=== PATIENT | female | born 1960 | race Caucasian/White ===

== ENCOUNTER 2020-11-04 17:00 | Inpatient (IN) | payer BC, MEDICARE ==
--- NOTE | 2020-11-04 17:17 | ED ---
SOB HPI - General Chief Complaint: Shortness of Breath Stated Complaint: ARLYN Time Seen by Provider: 11/04/20 17:05 Source: EMS Mode of arrival: EMS Limitations: no limitations - History of Present Illness Initial Comments: Patient is a 60-year-old female with past medical history of hypertension, DVT, factor V 5 who presents to the emergency room with reported shortness of breath, hypoxia, fevers and myalgias. Patient reports that she has been sick for over one week. Reports to diffuse myalgias, nausea and diarrhea. She also complains of shortness of breath without productive cough. Denies sick contacts with similar symptoms. Denies history of previous underlying lung or cardiac conditions. Patient denies any chest pain. No abdominal pain. She has been taking Motrin around the clock for her fevers and body aches. Last dose was around 1 PM. Patient reports to worsening shortness of breath and therefore called EMS. Upon arrival to her house she was found to be saturating 80%. She denies a history of COPD. No inhaler use. Does have a history of DVT and factor V. Currently not on any anticoagulation. Denies any calf pain or s welling. No other alleviating, precipitating or modifying factors - Related Data Home Medications Medication Instructions Recorded Confirmed Ascorbic Acid [Vitamin C] 500 mg PO DAILY 11/04/20 11/04/20 Aspirin EC [Ecotrin Low Dose] 81 mg PO DAILY 11/04/20 11/04/20 Cyclobenzaprine [Flexeril] 10 mg PO TID PRN 11/04/20 11/04/20 Ibuprofen [Motrin Ib] 600 mg PO Q8H PRN 11/04/20 11/04/20 Losartan Potassium 100 mg PO DAILY 11/04/20 11/04/20 Multivitamins, Thera [Multivitamin 1 tab PO DAILY 11/04/20 11/04/20 (formulary)] Vitamin E 400 unit PO DAILY 11/04/20 11/04/20 Zinc 50 mg PO DAILY 11/04/20 11/04/20 clonazePAM [KlonoPIN] 0.5 mg PO BID 11/04/20 11/04/20 oxyCODONE HCL [oxyCODONE HCL (IR)] 15 mg PO QID 11/04/20 11/04/20 Allergies Allergy/AdvReac Type Severity Reaction Status Date / Time azithromycin Allergy Itching Verified 11/04/20 21:17 chlorpromazine Allergy Anaphylaxis Verified 11/04/20 19:41 [From Thorazine] ciprofloxacin [From Cipro] Allergy Rash/Hives Verified 11/04/20 19:41 codeine Allergy Anaphylaxis Verified 11/04/20 19:41 gabapentin Allergy Unknown Verified 11/04/20 19:41 Gadolinium-Containing Allergy Anaphylaxis Verified 11/04/20 19:41 Contrast Medi Iodinated Contrast Media Allergy Anaphylaxis Verified 11/04/20 19:41 steroids AdvReac Confusion Uncoded 11/04/20 21:17 Review of Systems ROS Statement: Those systems with pertinent positive or pertinent negative responses have been documented in the HPI. ROS Other: All systems not noted in ROS Statement are negative. Past Medical History Past Medical History: Fibromyalgia, Hypertension, Pneumonia Additional Past Medical History / Comment(s): bronchitis. History of Any Multi-Drug Resistant Organisms: None Reported Past Surgical History: Adenoidectomy, Appendectomy, Cholecystectomy, Hysterectomy, Tonsillectomy Additional Past Surgical History / Comment(s): L5/s1 fusion. lower back sti mulator. wisdom teeth. Past Psychological History: No Psychological Hx Reported Smoking Status: Current every day smoker Past Alcohol Use History: None Reported Past Drug Use History: None Reported - Past Family History Mother History Unknown: Yes Family Medical History: Dementia, Deep Vein Thrombosis (DVT) Sister(s) Family Medical History: Deep Vein Thrombosis (DVT) Father Family Medical History: CVA/TIA Additional Family Medical History / Comment(s): Lung Ca Brother(s) History Unknown: Yes Family Medical History: Pulmonary Embolus General Exam Limitations: no limitations General appearance: alert, in no apparent distress Head exam: Present: atraumatic, normocephalic, normal inspection Eye exam: Present: normal appearance, PERRL, EOMI. Absent: scleral icterus, conjunctival injection, periorbital swelling ENT exam: Present: normal exam, mucous membranes moist Neck exam: Present: normal inspection. Absent: tenderness, meningismus, lymphadenopathy Respiratory exam: Present: decreased breath sounds. Absent: respiratory distress, wheezes, rales, rhonchi, stridor Cardiovascular Exam: Present: normal rhythm, tachycardia, normal heart sounds. Absent: systolic murmur, diastolic murmur, rubs, gallop, clicks GI/Abdominal exam: Present: soft, normal bowel sounds. Absent: distended, tenderness, guarding, rebound, rigid Extremities exam: Present: normal inspection, full ROM, normal capillary refill. Absent: tenderness, pedal edema, joint swelling, calf tenderness Back exam: Present: normal inspection Neurological exam: Present: alert, oriented X3, CN II-XII intact Psychiatric exam: Present: normal affect, normal mood Skin exam: Present: warm, dry, intact, normal color. Absent: rash Course Vital Signs 11/04/20 11/04/20 17:03 20:09 Temperature 98.4 F 98.2 F Pulse Rate 111 H 69 Respiratory 18 18 Rate Blood Pressure 139/109 132/84 O2 Sat by Pulse 99 94 L Oximetry Medical Decision Making - Medical Decision Making Upon arrival patient is placed into room 8. A thorough history and physical exam was performed. Patient is taken off of supplemental oxygen and is satu rating 90% for us. IV is established. Laboratory studies were conducted. Patient is swabbed for Covid. Because of her history of DVT in fact or [address] of her chest was performed. Laboratory studies are reviewed. CT of the chest was performed which demonstrates possible linear lucency is through posterior rib 8. Anterior seventh rib shows 1 cm zone of callus formation. Patient denies any recent falls. Albuterol inhaler, azithromycin and Rocephin were ordered. I will send a Covid PCR as I have concerns that the patient does clinically have Covid. Due to her new onset hypoxia I did recommend hospital admission. Spoke with Dr. nur who agreed to admit the patient. I will place Dr. Monsalve on consult. Patient remained in stable condition awaiting transport to the floor - Lab Data Result diagrams: 11/05/20 05:36 11/05/20 05:36 Lab Results 11/04/20 11/04/20 11/04/20 Range/Units 17:34 17:34 17:34 WBC 6.7 (3.8-10.6) k/uL RBC 4.53 (3.80-5.40) m/uL Hgb 14.8 (11.4-16.0) gm/dL Hct 43.4 (34.0-46.0) % MCV 95.8 (80.0-100.0) fL MCH 32.7 (25.0-35.0) pg MCHC 34.1 (31.0-37.0) g/dL RDW 12.4 (11.5-15.5) % Plt Count 315 (150-450) k/uL MPV 6.8 Neutrophils % 57 % Lymphocytes % 33 % Monocytes % 6 % Eosinophils % 2 % Basophils % 1 % Neutrophils # 3.8 (1.3-7.7) k/uL Lymphocytes # 2.2 (1.0-4.8) k/uL Monocytes # 0.4 (0-1.0) k/uL Eosinophils # 0.2 (0-0.7) k/uL Basophils # 0.0 (0-0.2) k/uL PT 9.5 (9.0-12.0) sec INR 0.9 (<1.2) APTT 22.5 (22.0-30.0) sec D-Dimer 0.46 (<0.60) mg/L FEU Sodium 136 L (137-145) mmol/L Potassium 3.8 (3.5-5.1) mmol/L Chloride 101 (98-107) mmol/L Carbon Dioxide 29 (22-30) mmol/L Anion Gap 6 mmol/L BUN 10 (7-17) mg/dL Creatinine 0.73 (0.52-1.04) mg/dL Est GFR (CKD-EPI)AfAm >90 (>60 ml/min/1.73 sqM) Est GFR (CKD-EPI)NonAf >90 (>60 ml/min/1.73 sqM) Glucose 96 (74-99) mg/dL Plasma Lactic Acid Kaz (0.7-2.0) mmol/L Calcium 9.0 (8.4-10.2) mg/dL Total Bilirubin 0.4 (0.2-1.3) mg/dL AST 23 (14-36) U/L ALT 24 (4-34) U/L Alkaline Phosphatase 94 (38-126) U/L Troponin I (0.000-0.034) ng/mL NT-Pro-B Natriuret Pep pg/mL Total Protein 6.8 (6.3-8.2) g/dL Albumin 4.2 (3.5-5.0) g/dL Coronavirus (PCR) (Not Detectd) 11/04/20 11/04/20 11/04/20 Range/Units 17:34 17:34 17:34 WBC (3.8-10.6) k/uL RBC (3.80-5.40) m/uL Hgb (11.4-16.0) gm/dL Hct (34.0-46.0) % MCV (80.0-100.0) fL MCH (25.0-35.0) pg MCHC (31.0-37.0) g/dL RDW (11.5-15.5) % Plt Count (150-450) k/uL MPV Neutrophils % % Lymphocytes % % Monocytes % % Eosinophils % % Basophils % % Neutrophils # (1.3-7.7) k/uL Lymphocytes # (1.0-4.8) k/uL Monocytes # (0-1.0) k/uL Eosinophils # (0-0.7) k/uL Basophils # (0-0.2) k/uL PT (9.0-12.0) sec INR (<1.2) APTT (22.0-30.0) sec D-Dimer (<0.60) mg/L FEU Sodium (137-145) mmol/L Potassium (3.5-5.1) mmol/L Chloride (98-107) mmol/L Carbon Dioxide (22-30) mmol/L Anion Gap mmol/L BUN (7-17) mg/dL Creatinine (0.52-1.04) mg/dL Est GFR (CKD-EPI)AfAm (>60 ml/min/1.73 sqM) Est GFR (CKD-EPI)NonAf (>60 ml/min/1.73 sqM) Glucose (74-99) mg/dL Plasma Lactic Acid Kaz 0.9 (0.7-2.0) mmol/L Calcium (8.4-10.2) mg/dL Total Bilirubin (0.2-1.3) mg/dL AST (14-36) U/L ALT (4-34) U/L Alkaline Phosphatase (38-126) U/L Troponin I <0.012 (0.000-0.034) ng/mL NT-Pro-B Natriuret Pep 443 pg/mL Total Protein (6.3-8.2) g/dL Albumin (3.5-5.0) g/dL Coronavirus (PCR) (Not Detectd) 11/04/20 Range/Units 17:34 WBC (3.8-10.6) k/uL RBC (3.80-5.40) m/uL Hgb (11.4-16.0) gm/dL Hct (34.0-46.0) % MCV (80.0-100.0) fL MCH (25.0-35.0) pg MCHC (31.0-37.0) g/dL RDW (11.5-15.5) % Plt Count (150-450) k/uL MPV Neutrophils % % Lymphocytes % % Monocytes % % Eosinophils % % Basophils % % Neutrophils # (1.3-7.7) k/uL Lymphocytes # (1.0-4.8) k/uL Monocytes # (0-1.0) k/uL Eosinophils # (0-0.7) k/uL Basophils # (0-0.2) k/uL PT (9.0-12.0) sec INR (<1.2) APTT (22.0-30.0) sec D-Dimer (<0.60) mg/L FEU Sodium (137-145) mmol/L Potassium (3.5-5.1) mmol/L Chloride (98-107) mmol/L Carbon Dioxide (22-30) mmol/L Anion Gap mmol/L BUN (7-17) mg/dL Creatinine (0.52-1.04) mg/dL Est GFR (CKD-EPI)AfAm (>60 ml/min/1.73 sqM) Est GFR (CKD-EPI)NonAf (>60 ml/min/1.73 sqM) Glucose (74-99) mg/dL Plasma Lactic Acid Kaz (0.7-2.0) mmol/L Calcium (8.4-10.2) mg/dL Total Bilirubin (0.2-1.3) mg/dL AST (14-36) U/L ALT (4-34) U/L Alkaline Phosphatase (38-126) U/L Troponin I (0.000-0.034) ng/mL NT-Pro-B Natriuret Pep pg/mL Total Protein (6.3-8.2) g/dL Albumin (3.5-5.0) g/dL Coronavirus (PCR) Not Detected (Not Detectd) - EKG Data EKG Comments: EKG demonstrates sinus rhythm with a ventricular rate of 96. CT interval 134. QRS 88. QTC of 464. No acute ST segment elevations or depressions. PVC present Disposition Clinical Impression: Hypoxia, Tachycardia, Myalgia, Pyrexia Disposition: ADMITTED IP TO THIS HOSP Condition: Stable Is patient prescribed a controlled substance at d/c from ED?: No Decision to Admit Reason: Admit from EC Decision Date: 11/04/20 Decision Time: 19:09
[2020-11-04] MEDS ORDERED: FAMOTIDINE 20 MG/2 ML VIAL IV STA (17:42)
[2020-11-04] MEDS ORDERED: diphenhydrAMINE 50 MG/ML 1 ML VIAL IVP STA (17:42)
[2020-11-04 17:50] LABS: Basophils % (A) 1 %; Eosinophils # (A) 0.2 k/uL (0-0.7); Eosinophils % (A) 2 %; HCT 43.4 % (34.0-46.0); HGB 14.8 gm/dL (11.4-16.0); Lymphocytes # (A) 2.2 k/uL (1.0-4.8); Lymphocytes % (A) 33 %; MCH 32.7 pg (25.0-35.0); MCHC 34.1 g/dL (31.0-37.0); MCV 95.8 fL (80.0-100.0); Mean Platelet Volume 6.8; Monocytes # (A) 0.4 k/uL (0-1.0); Monocytes % (A) 6 %; Neutrophils # (A) 3.8 k/uL (1.3-7.7); Neutrophils % (A) 57 %; Platelet Count 315 k/uL (150-450); RBC 4.53 m/uL (3.80-5.40); RDW 12.4 % (11.5-15.5); WBC 6.7 k/uL (3.8-10.6)
[2020-11-04 18:01] LABS: ALT 24 U/L (4-34); AST 23 U/L (14-36); African American GFR (CKD) >90 (>60 ml/min/1.73 sqM); Albumin 4.2 g/dL (3.5-5.0); Alkaline Phosphatase 94 U/L (38-126); Anion Gap 6 mmol/L; Blood Urea Nitrogen 10 mg/dL (7-17); Carbon Dioxide 29 mmol/L (22-30); Chloride 101 mmol/L (98-107); Glucose 96 mg/dL (74-99); Non-African American GFR(CKD) >90 (>60 ml/min/1.73 sqM); Potassium 3.8 mmol/L (3.5-5.1); Sodium 136 mmol/L (137-145); Total Bilirubin 0.4 mg/dL (0.2-1.3); Total Protein 6.8 g/dL (6.3-8.2)
[2020-11-04 18:06] LABS: INR 0.9 (<1.2); Partial Thromboplastin Time 22.5 sec (22.0-30.0); Prothrombin Time 9.5 sec (9.0-12.0)
--- NOTE | 2020-11-04 18:38 | CT ---
EXAMINATION TYPE: CT chest angio for PE with contrast and with 3-D reconstruction renderings DATE OF EXAM: 11/04/2020 COMPARISON: None HISTORY: History of DVT. Factor 5, shortness of breath, tachycardia and hypoxia. CT DLP: 352.5 mGycm Automated exposure control for dose reduction was used. CONTRAST: CT Chest for pulmonary embolism performed with with IV Contrast, patient injected with 100 mL of Isovue 370. FINDINGS: Airways: Unremarkable Lungs: Clear and well expanded bilaterally. However, a 1 cm ossification is noted in the right lower lobe, immediately cephalad to the right hemidiaphragm, consistent with healed granuloma. Pleural spaces: No abnormal gas or fluid collections. Mediastinum:There is satisfactory enhancement of the pulmonary artery and its branches, with no no CT evidence for pulmonary embolism. The aorta is unremarkable. No cardiomegaly or pericardial effusion. There are no greater than 1 cm hilar or mediastinal lymph nodes. Other: No additional significant abnormality is seen. IMPRESSION: No acute process.
[2020-11-04] MEDS ORDERED: AZITHROMYCIN 500 MG in SODIUM CHLORIDE 0.9% 250 ML IVPB STA (18:49)
[2020-11-04] MEDS ORDERED: cefTRIAXone IN SWFI 1,000 MG/10 ML SYRINGE IVP STA (18:49)
[2020-11-04] MEDS ORDERED: DEXAMETHASONE SOD PHOSPHATE 10 MG/ML 1 ML VIAL IV STA (19:04)
[2020-11-04] MEDS ORDERED: ALBUTEROL HFA INHALER INHALATION STA (19:04)
[2020-11-04] MEDS ORDERED: ACETAMINOPHEN TAB 325 MG TAB PO PRN (19:09)
[2020-11-04] MEDS ORDERED: NALOXONE 0.4 MG/ML 1 ML VIAL IV PRN (19:09)
[2020-11-04] MEDS ORDERED: CYCLOBENZAPRINE 10 MG TAB PO PRN (20:01)
[2020-11-04] MEDS: SODIUM CHLORIDE 0.9% 1,000 ML IV SCH (20:03)
[2020-11-04 20:07] LABS: Appearance,Urine Clear (Clear); Bilirubin,Urine Negative (Negative); Blood,Urine Negative (Negative); Color,Urine Colorless; Glucose,Urine (UA) Negative (Negative); Ketones,Urine Negative (Negative); Leukocyte Esterase,Urine Negative (Negative); Nitrite,Urine Negative (Negative); PH, Urine 6.5 (5.0-8.0); Protein,Urine Negative (Negative); Specific Gravity,Urine 1.025 (1.001-1.035); Urobilinogen,Urine <2.0 mg/dL (<2.0)
[2020-11-04] MEDS: clonazePAM 0.5 MG TAB PO SCH (22:24)
[2020-11-05] MEDS: IBUPROFEN 400 MG TAB PO PRN ×3 (04:23→19:22)
[2020-11-05] MEDS: SODIUM CHLORIDE 0.9% 1,000 ML IV SCH ×2 (04:23→17:16)
[2020-11-05 07:12] LABS: African American GFR (CKD) >90 (>60 ml/min/1.73 sqM); Anion Gap 4 mmol/L; Blood Urea Nitrogen 9 mg/dL (7-17); Calcium 8.5 mg/dL (8.4-10.2); Carbon Dioxide 29 mmol/L (22-30); Chloride 107 mmol/L (98-107); Glucose 79 mg/dL (74-99); Non-African American GFR(CKD) >90 (>60 ml/min/1.73 sqM); Potassium 3.8 mmol/L (3.5-5.1); Sodium 140 mmol/L (137-145)
[2020-11-05] MEDS: ASCORBIC ACID 500 MG TAB PO SCH (08:44)
[2020-11-05] MEDS: ZINC SULFATE 220 MG CAP PO SCH (08:44)
[2020-11-05] MEDS: LOSARTAN 50 MG TAB PO SCH (08:44)
[2020-11-05] MEDS: ASPIRIN 81 MG PO SCH (08:44)
[2020-11-05] MEDS: VITAMIN E (DL,TOCOPHERYL ACET) 400 UNIT (180 MG) CAP PO SCH (08:48)
[2020-11-05] MEDS: clonazePAM 0.5 MG TAB PO SCH ×2 (08:50→21:35)
[2020-11-05 08:53] LABS: Basophils # (A) 0.02 X 10*3/uL (0.00-0.10); Basophils % (A) 0.4 %; Eosinophils # (A) 0.11 X 10*3/uL (0.04-0.35); Eosinophils % (A) 2.2 %; HCT 39.5 % (37.2-46.3); HGB 13.3 g/dL (12.0-15.0); Lymphocytes # (A) 1.98 X 10*3/uL (0.90-5.00); Lymphocytes % (A) 39.5 %; MCH 32.7 pg (27.0-32.0); MCHC 33.7 g/dL (32.0-37.0); MCV 97.1 fL (80.0-97.0); Mean Platelet Volume 9.6 fL (9.5-12.2); Monocytes # (A) 0.45 X 10*3/uL (0.20-1.00); Neutrophils # (A) 2.44 X 10*3/uL (1.80-7.70); Neutrophils % (A) 48.7 %; Platelet Count 254 X 10*3/uL (140-440); RBC 4.07 X 10*6/uL (4.10-5.20); RDW 11.9 % (11.5-14.5); WBC 5.01 X 10*3/uL (4.50-10.00)
--- NOTE | 2020-11-05 11:20 | P.CNPUL ---
History of Present Illness Consult date: 11/05/20 Requesting physician: Marcelino Navarro Reason for consult: dyspnea Chief complaint: Shortness of breath, cough, congestion History of present illness: This a very pleasant 60-year-old female patient with a known history of fibromyalgia, chronic back pain with pain stimulator, factor V, DVT, hypert ension, multiple ALLERGIES. She presented here to the emergency room yesterday after a 8 day history of increased shortness of breath, dry nonproductive cough. Fever. Body aches. Nausea, diarrhea. CoVID 19 screen was negative. She denied any exposures. She lives at home with her adopted grandson. She does have chronic and ongoing tobacco dependence. She does have a rescue inhaler but no maintenance inhalers. He states she gets bronchitis typically this time of year. CT angiogram ruled out pulmonary embolism. Lung french were clear. No evidence of CoVID pneumonitis. White count 5.0. Hemoglobin 13.3. Sodium 140. Potassium 3.8. D-dimer 0.46. Creatinine 0.58. She is seen today in consultation on the regular medical floor. She is awake and alert in no acute distress. She is dyspneic with minimal exertion. She does have some end expiratory wheeze, dry nonproductive cough. She is currently afebrile. Maintaining O2 saturations in high 90s on room air. Review of Systems REVIEW OF SYSTEMS: CONSTITUTIONAL: Generalized weakness, body aches. Denies any recent significant weight loss or weight gain. EYES: Denies change in vision. EARS, NOSE, MOUTH, THROAT: Denies headaches, denies sore throat. CARDIOVASCULAR: Denies chest pain, palpitations or syncopal episodes. RESPIRATORY: Positive for shortness of breath, cough, congestion no hemoptysis. GASTROINTESTINAL: Denies change in appetite, denies abdominal pain GENITOURINARY: Denies hematuria, denies infections. MUSKULOSKELETAL: Denies pain, denies swelling. INTEGUMENTARY: Denies rash, denies eczema. NEUROLOGICAL: Denies recent memory loss, no recent seizure activity. PSYCHIATRIC: Denies anxiety, denies depression. HEMATOLOGIC/LYMPHATIC: Denies anemia, denies enlarged lymph nodes. Past Medical History Past Medical History: Fibromyalgia, Hypertension, Pneumonia Additional Past Medical History / Comment(s): bronchitis. History of Any Multi-Drug Resistant Organisms: None Reported Past Surgical History: Adenoidectomy, Appendectomy, Cholecystectomy, Hysterectomy, Tonsillectomy Additional Past Surgical History / Comment(s): L5/s1 fusion. lower back stimulator. wisdom teeth. Past Anesthesia/Blood Transfusion Reactions: No Reported Reaction Past Psychological History: No Psychological Hx Reported Smoking Status: Current every day smoker Past Alcohol Use History: None Reported Past Drug Use History: None Reported - Past Family History Mother History Unknown: Yes Family Medical History: Dementia, Deep Vein Thrombosis (DVT) Sister(s) Family Medical History: Deep Vein Thrombosis (DVT) Father Family Medical History: CVA/TIA Additional Family Medical History / Comment(s): Lung Ca Brother(s) History Unknown: Yes Family Medical History: Pulmonary Embolus Medications and Allergies Home Medications Medication Instructions Recorded Confirmed Type Ascorbic Acid [Vitamin C] 500 mg PO DAILY 11/04/20 11/04/20 History Aspirin EC [Ecotrin Low Dose] 81 mg PO DAILY 11/04/20 11/04/20 History Cyclobenzaprine [Flexeril] 10 mg PO TID PRN 11/04/20 11/04/20 History Ibuprofen [Motrin Ib] 600 mg PO Q8H PRN 11/04/20 11/04/20 History Losartan Potassium 100 mg PO DAILY 11/04/20 11/04/20 History Multivitamins, Thera [Multivitamin 1 tab PO DAILY 11/04/20 11/04/20 History (formulary)] Vitamin E 400 unit PO DAILY 11/04/20 11/04/20 History Zinc 50 mg PO DAILY 11/04/20 11/04/20 History clonazePAM [KlonoPIN] 0.5 mg PO BID 11/04/20 11/04/20 History oxyCODONE HCL [oxyCODONE HCL (IR)] 15 mg PO QID 11/04/20 11/04/20 History Allergies Allergy/AdvReac Type Severity Reaction Status Date / Time azithromycin Allergy Itching Verified 11/04/20 21:17 chlorpromazine Allergy Anaphylaxis Verified 11/04/20 19:41 [From Thorazine] ciprofloxacin [From Cipro] Allergy Rash/Hives Verified 11/04/20 19:41 codeine Allergy Anaphylaxis Verified 11/04/20 19:41 gabapentin Allergy Unknown Verified 11/04/20 19:41 Gadolinium-Containing Allergy Anaphylaxis Verified 11/04/20 19:41 Contrast Medi Iodinated Contrast Media Allergy Anaphylaxis Verified 11/04/20 19:41 steroids AdvReac Confusion Uncoded 11/04/20 21:17 Physical Exam Vitals: Vital Signs Temp Pulse Pulse Resp BP BP Pulse Ox 11/05/20 10:16 20 11/05/20 07:43 97.9 F 91 20 129/84 98 11/05/20 02:00 97.5 F L 86 20 124/81 99 11/04/20 21:45 97.8 F 82 20 131/93 96 11/04/20 20:09 98.2 F 69 18 132/84 94 L 11/04/20 17:03 98.4 F 111 H 18 139/109 99 Intake and Output 11/04/20 11/05/20 11/05/20 22:59 06:59 14:59 Intake Total 100 100 200 Balance 100 100 200 Intake: Oral 100 100 200 Other: # Voids 0 Weight 74.843 kg GENERAL EXAM: Alert, pleasant 60-year-old female patient, on room air, comfortable in no apparent distress. HEAD: Normocephalic. EYES: Normal reaction of pupils, equal size. NOSE: Clear with pink turbinates. THROAT: No erythema or exudates. NECK: No masses, no JVD. CHEST: No chest wall deformity. LUNGS: Equal air entry with bilateral end expiratory wheeze, diminished. CVS: S1 and S2 normal with no audible murmur, regular rhythm. ABDOMEN: No hepatosplenomegaly, normal bowel sounds, no guarding or rigidity. SPINE: No scoliosis or deformity SKIN: No rashes CENTRAL NERVOUS SYSTEM: No focal deficits, tone is normal in all 4 extremities. EXTREMITIES: There is no peripheral edema. No clubbing, no cyanosis. Peripheral pulses are intact. Results - Laboratory Findings CBC and BMP: 11/05/20 05:36 11/05/20 05:36 PT/INR, D-dimer PT 9.5 sec (9.0-12.0) 11/04/20 17:34 INR 0.9 (<1.2) 11/04/20 17:34 D-Dimer 0.46 mg/L FEU (<0.60) 11/04/20 17:34 Abnormal lab findings: Abnormal Labs 11/04/20 11/05/20 17:34 05:36 RBC 4.07 L MCV 97.1 H MCH 32.7 H Sodium 136 L - Diagnostic Findings CT scan - chest: image reviewed Assessment and Plan Assessment: 1 weakness of breath secondary to acute purulent tracheobronchitis 2 Suspect acute exacerbation of chronic obstructive pulmonary disease 3 Chronic and ongoing tobacco dependence 4 History of fibromyalgia 6 History of chronic back pain 7 Hypertension Plan: The patient was seen and evaluated by Dr. Miramontes CAT scan of labs reviewed Trial her with Decadron Add albuterol Educated regarding the importance of complete smoking cessation Add NicoDerm patch Probable discharge in the a.m. She would benefit from a follow-up in our office where we can perform full pulmonary function testing to evaluate severity of suspected COPD We will continue to follow and make further recommendations based on her clinical status I, the cosigning physician, performed a history & physical examination of the patient. Lungs sounds with bilateral index. Maintaining good O2 saturations in the 90s on room air. I discussed the assessment and plan of care with my nurse practitioner, Nieves Dwyer. I attest to the above consultation as dictated by her. Time with Patient: Greater than 30
[2020-11-05] MEDS: ALBUTEROL HFA INHALER INHALATION SCH ×3 (11:36→20:12)
[2020-11-05] MEDS ORDERED: ALBUTEROL HFA INHALER INHALATION SCH (12:00)
[2020-11-05] MEDS ORDERED: IPRATROPIUM-ALBUTEROL 3 ML NEB INHALATION SCH (12:00)
[2020-11-05] MEDS: NICOTINE 14MG/24HR PATCH TRANSDERM SCH (12:08)
[2020-11-05] MEDS: DEXAMETHASONE SOD PHOSPHATE 4 MG/ML 1 ML VIAL IV SCH ×2 (13:06→18:03)
--- NOTE | 2020-11-05 18:08 | P.HPIM ---
History of Present Illness H&P Date: 11/05/20 Chief Complaint: Shortness of breath 60-year-old female with past medical history of hypertension, DVT, factor V 5 who presents to the emergency room with reported shortness of breath, hypoxia, fevers and myalgias. Patient reports that she has been sick for over one week. Reports to diffuse myalgias, nausea and diarrhea. She also complains of shortness of breath without productive cough. Denies sick contacts with similar symptoms. Denies history of previous underlying lung or cardiac conditions. Patient denies any chest pain. No abdominal pain. She has been taking Motrin around the clock for her fevers and body aches. Last dose was around 1 PM. Patient reports to worsening shortness of breath and therefore called EMS. Upon arrival to her house she was found to be saturating 80%. She denies a history of COPD. No inhaler use. Does have a history of DVT and factor V. Currently not on any anticoagulation. Denies any calf pain or swelling. No other a lleviating, precipitating or modifying factors CT of her chest was performed. Laboratory studies are reviewed. CT of the chest was performed which demonstrates possible linear lucency is through pos terior rib 8. Anterior seventh rib shows 1 cm zone of callus formation. Patient denies any recent falls. Albuterol inhaler, azithromycin and Rocephin were ordered. Review of Systems REVIEW OF SYSTEMS: CONSTITUTIONAL: No fever, no malaise, no fatigue. HEENT: No recent visual problems or hearing problems. Denied any sore throat. CARDIOVASCULAR: No chest pain, orthopnea, PND, no palpitations, no syncope. PULMONARY: No shortness of breath, no cough, no hemoptysis. GASTROINTESTINAL: No diarrhea, no nausea, no vomiting, no abdominal pain. NEUROLOGICAL: No headaches, no weakness, no numbness. HEMATOLOGICAL: Denies any bleeding or petechiae. GENITOURINARY: Denies any burning micturition, frequency, or urgency. MUSCULOSKELETAL/RHEUMATOLOGICAL: Denies any joint pain, swelling, or any muscle pain. ENDOCRINE: Denies any polyuria or polydipsia. The rest of the 14-point review of systems is negative. Past Medical History Past Medical History: Fibromyalgia, Hypertension, Pneumonia Additional Past Medical History / Comment(s): bronchitis. History of Any Multi-Drug Resistant Organisms: None Reported Past Surgical History: Adenoidectomy, Appendectomy, Cholecystectomy, Hysterectomy, Tonsillectomy Additional Past Surgical History / Comment(s): L5/s1 fusion. lower back stimulator. wisdom teeth. Past Anesthesia/Blood Transfusion Reactions: No Reported Reaction Past Psychological History: No Psychological Hx Reported Smoking Status: Current every day smoker Past Alcohol Use History: None Reported Past Drug Use History: None Reported - Past Family History Mother History Unknown: Yes Family Medical History: Dementia, Deep Vein Thrombosis (DVT) Sister(s) Family Medical History: Deep Vein Thrombosis (DVT) Father Family Medical History: CVA/TIA Additional Family Medical History / Comment(s): Lung Ca Brother(s) History Unknown: Yes Family Medical History: Pulmonary Embolus Medications and Allergies Home Medications Medication Instructions Recorded Confirmed Type Ascorbic Acid [Vitamin C] 500 mg PO DAILY 11/04/20 11/04/20 History Aspirin EC [Ecotrin Low Dose] 81 mg PO DAILY 11/04/20 11/04/20 History Cyclobenzaprine [Flexeril] 10 mg PO TID PRN 11/04/20 11/04/20 History Ibuprofen [Motrin Ib] 600 mg PO Q8H PRN 11/04/20 11/04/20 History Losartan Potassium 100 mg PO DAILY 11/04/20 11/04/20 History Multivitamins, Thera [Multivitamin 1 tab PO DAILY 11/04/20 11/04/20 History (formulary)] Vitamin E 400 unit PO DAILY 11/04/20 11/04/20 History Zinc 50 mg PO DAILY 11/04/20 11/04/20 History clonazePAM [KlonoPIN] 0.5 mg PO BID 11/04/20 11/04/20 History oxyCODONE HCL [oxyCODONE HCL (IR)] 15 mg PO QID 11/04/20 11/04/20 History Allergies Allergy/AdvReac Type Severity Reaction Status Date / Time azithromycin Allergy Itching Verified 11/04/20 21:17 chlorpromazine Allergy Anaphylaxis Verified 11/04/20 19:41 [From Thorazine] ciprofloxacin [From Cipro] Allergy Rash/Hives Verified 11/04/20 19:41 codeine Allergy Anaphylaxis Verified 11/04/20 19:41 gabapentin Allergy Unknown Verified 11/04/20 19:41 Gadolinium-Containing Allergy Anaphylaxis Verified 11/04/20 19:41 Contrast Medi Iodinated Contrast Media Allergy Anaphylaxis Verified 11/04/20 19:41 steroids AdvReac Confusion Uncoded 11/04/20 21:17 Physical Exam Vitals: Vital Signs Temp Pulse Pulse Resp BP BP Pulse Ox 11/05/20 10:16 20 11/05/20 07:43 97.9 F 91 20 129/84 98 11/05/20 02:00 97.5 F L 86 20 124/81 99 11/04/20 21:45 97.8 F 82 20 131/93 96 11/04/20 20:09 98.2 F 69 18 132/84 94 L 11/04/20 17:03 98.4 F 111 H 18 139/109 99 Intake and Output 11/04/20 11/05/20 11/05/20 22:59 06:59 14:59 Intake Total 100 100 200 Balance 100 100 200 Intake: Oral 100 100 200 Other: # Voids 0 Weight 74.843 kg GENERAL EXAM: Alert, pleasant 60-year-old female patient, on room air, comfortable in no apparent distress. HEAD: Normocephalic. EYES: Normal reaction of pupils, equal size. NOSE: Clear with pink turbinates. THROAT: No erythema or exudates. NECK: No masses, no JVD. CHEST: No chest wall deformity. LUNGS: Equal air entry with bilateral end expiratory wheeze, diminished. CVS: S1 and S2 normal with no audible murmur, regular rhythm. ABDOMEN: No hepatosplenomegaly, normal bowel sounds, no guarding or rigidity. SPINE: No scoliosis or deformity SKIN: No rashes CENTRAL NERVOUS SYSTEM: No focal deficits, tone is normal in all 4 extremities. EXTREMITIES: There is no peripheral edema. No clubbing, no cyanosis. Peripheral pulses are intact. Results CBC & Chem 7: 11/05/20 05:36 11/05/20 05:36 Labs: Abnormal Lab Results - Last 24 Hours (Table) 11/04/20 11/05/20 Range/Units 17:34 05:36 RBC 4.07 L (4.10-5.20) X 10*6/uL MCV 97.1 H (80.0-97.0) fL MCH 32.7 H (27.0-32.0) pg Sodium 136 L (137-145) mmol/L Thrombosis Risk Factor Assmnt - Choose All That Apply Each Risk Factor Represents 3 Points: Positive Factor V Leiden Thrombosis Risk Factor Assessment Total Risk Factor Score: 3 Thrombosis Risk Factor Assessment Level: Moderate Risk Assessment and Plan Assessment: 1. Shortness of breath secondary to acute purulent tracheobronchitis - Patient has been evaluated and started on IV Rocephin and azithromycin; pulmonary service is consulted and recommending to give a trial of Decadron and albuterol 2. Suspect acute exacerbation of chronic obstructive pulmonary disease 3. Chronic and ongoing tobacco dependence; counseling done and need for smoking cessation; nicotine patch is admitted 4. History of fibromyalgia; patient takes oxycodone 15 mg 4 times a day, ibuprofen 400 mg every 6 hours when necessary and Flexeril 10 mg 3 times a day when necessary 5. Hypertension; losartan 100 mg daily 6. Chronic back pain; oxycodone 15 mg 4 times a day with Flexeril DVT prophylaxis; SCDs CODE STATUS; full code
[2020-11-05] MEDS: diphenhydrAMINE 50 MG/ML 1 ML VIAL IVP PRN (19:22)
[2020-11-06] MEDS: diphenhydrAMINE 50 MG/ML 1 ML VIAL IVP PRN ×4 (00:50→23:04)
[2020-11-06] MEDS: IBUPROFEN 400 MG TAB PO PRN ×3 (00:50→14:52)
[2020-11-06] MEDS: DEXAMETHASONE SOD PHOSPHATE 4 MG/ML 1 ML VIAL IV SCH ×5 (00:50→22:59)
[2020-11-06] MEDS: SODIUM CHLORIDE 0.9% 1,000 ML IV SCH ×3 (02:30→20:52)
[2020-11-06 07:41] LABS: Glucose,Whole Blood 175 mg/dL (75-99)
[2020-11-06] MEDS: ALBUTEROL HFA INHALER INHALATION SCH ×2 (08:05→11:12)
[2020-11-06] MEDS: VITAMIN E (DL,TOCOPHERYL ACET) 400 UNIT (180 MG) CAP PO SCH (09:21)
[2020-11-06] MEDS: LOSARTAN 50 MG TAB PO SCH (09:22)
[2020-11-06] MEDS: clonazePAM 0.5 MG TAB PO SCH ×2 (09:22→20:52)
[2020-11-06] MEDS: ASPIRIN 81 MG PO SCH (09:22)
[2020-11-06] MEDS: ASCORBIC ACID 500 MG TAB PO SCH (09:22)
[2020-11-06] MEDS: ZINC SULFATE 220 MG CAP PO SCH (09:22)
[2020-11-06] MEDS: NICOTINE 14MG/24HR PATCH TRANSDERM SCH (09:23)
[2020-11-06] MEDS ORDERED: PROMETHAZINE 25 MG TAB PO PRN (11:43)
[2020-11-06] MEDS ORDERED: IPRATROPIUM-ALBUTEROL 3 ML NEB INHALATION PRN (11:43)
--- NOTE | 2020-11-06 11:45 | P.PN ---
Subjective Progress Note Date: 11/06/20 This a very pleasant 60-year-old female patient with a known history of fibromyalgia, chronic back pain with pain stimulator, factor V, DVT, hypertension, multiple ALLERGIES. She presented here to the emergency room yesterday after a 8 day history of increased shortness of breath, dry nonproductive cough. Fever. Body aches. Nausea, diarrhea. CoVID 19 screen was negative. She denied any exposures. She lives at home with her adopted grandson. She does have chronic and ongoing tobacco dependence. She does have a rescue inhaler but no maintenance inhalers. He states she gets bronchitis typically this time of year. CT angiogram ruled out pulmonary embolism. Lung french were clear. No evidence of CoVID pneumonitis. White count 5.0. Hemoglobin 13.3. Sodium 140. Potassium 3.8. D-dimer 0.46. Creatinine 0.58. She is seen today in consultation on the regular medical floor. She is awake and alert in no acute distress. She is dyspneic with minimal exertion. She does have some end expiratory wheeze, dry nonproductive cough. She is currently afebrile. Maintaining O2 saturations in high 90s on room air. on today's evaluation of the11/06/2020 the patient is slightly jittery. She is still congested and she is having increased cough and congestion and wheezing. She is on Decadron 4 mg IV every 6 hours. She is also on albuterol nebulized HFA or times a day. She has not shown significant recovery since yesterday.she is afebrile. No nausea. No vomiting. No diarrhea. Chest is sore from coughing. Objective - Vital Signs Vital signs: Vital Signs Temp 97.7 F 11/06/20 08:00 Pulse 70 11/06/20 08:00 Resp 16 11/06/20 08:00 BP 133/85 11/06/20 08:00 Pulse Ox 91 L 11/06/20 08:00 Intake & Output 11/05/20 11/06/20 11/06/20 18:59 06:59 18:59 Intake Total 200 Balance 200 Intake: Oral 200 Other: Voiding Method Toilet Toilet # Voids 2 2 - Exam GENERAL EXAM: Alert, pleasant 60-year-old female patient, on room air, comfortable in no apparent distress. HEAD: Normocephalic. EYES: Normal reaction of pupils, equal size. NOSE: Clear with pink turbinates. THROAT: No erythema or exudates. NECK: No masses, no JVD. CHEST: No chest wall deformity. LUNGS: Equal air entry with bilateral end expiratory wheeze, diminished. CVS: S1 and S2 normal with no audible murmur, regular rhythm. ABDOMEN: No hepatosplenomegaly, normal bowel sounds, no guarding or rigidity. SPINE: No scoliosis or deformity SKIN: No rashes CENTRAL NERVOUS SYSTEM: No focal deficits, tone is normal in all 4 extremities. EXTREMITIES: There is no peripheral edema. No clubbing, no cyanosis. Peripheral pulses are intact. - Labs CBC & Chem 7: 11/05/20 05:36 11/05/20 05:36 Labs: Abnormal Lab Results - Last 24 Hours (Table) 11/06/20 Range/Units 07:01 POC Glucose (mg/dL) 175 H (75-99) mg/dL Microbiology - Last 24 Hours (Table) 11/04/20 19:55 Blood Culture - Preliminary Blood No Growth after 24 hours Assessment and Plan Plan: 1 acute on chronic shortness of breath secondary to acute purulent tracheobronchitisan underlying COPD exacerbation 2 acute exacerbation of chronic obstructive pulmonary disease 3 Chronic and ongoing tobacco dependence 4 History of fibromyalgia 6 History of chronic back pain 7 Hypertension 8 previous history of a left lower extremity DVT and the patient is known to have factor V Leyden and the patient is currently on no anticoagulation. Her last DVT was in 2019 and she got treated and to coagulation plan Start the patient on DuoNeb nebulized treatments around the clock Continue IV Decadron Promethazine 6.25 mg for cough Heparin subcu for DVT prophylaxis We'll continue to follow. She is not ready for discharge at this point in time of the patient's cough and congestion and shortness of breath is still quite active.
[2020-11-06 11:56] LABS: Glucose,Whole Blood 194 mg/dL (75-99)
[2020-11-06] MEDS: IPRATROPIUM-ALBUTEROL 3 ML NEB INHALATION SCH ×2 (15:55→20:02)
[2020-11-06] MEDS: HEPARIN SODIUM,PORCINE 5,000 UNIT/ML 1 ML VIAL SQ SCH ×2 (16:01→22:59)
[2020-11-06 16:50] LABS: Glucose,Whole Blood 199 mg/dL (75-99)
--- NOTE | 2020-11-06 17:32 | P.PN ---
Subjective Progress Note Date: 11/06/20 Principal diagnosis: Acute on chronic dyspnea Acute purulent tracheobronchitis Acute exacerbation COPD Atypical chest pain 60-year-old female patient with a known history of fibromyalgia, chronic back pain with pain stimulator, factor V, DVT, hypertension, multiple ALLERGIES. She presented here to the emergency room yesterday after a 8 day history of increased shortness of breath, dry nonproductive cough. Fever. Body aches. Nausea, diarrhea. CoVID 19 screen was negative. She denied any exposures. She lives at home with her adopted grandson. She does have chronic and ongoing tobacco dependence. She does have a rescue inhaler but no maintenance inhalers. He states she gets bronchitis typically this time of year. CT angiogram ruled out pulmonary embolism. Lung french were clear. No evidence of CoVID pneumonitis. White count 5.0. Hemoglobin 13.3. Sodium 140. Potassium 3.8. D-dimer 0.46. Creatinine 0.58. She is seen today in consultation on the [facility] medical floor. She is awake and alert in no acute distress. She is dyspneic with minimal exertion. She does have some end expiratory wheeze, dry nonproductive cough. She is currently afebrile. Maintaining O2 saturations in high 90s on room air. 11/06/2020 Patient is seen and evaluated in follow-up; pains off sharp chest pain on left rib area; vital signs are stable with a temperature of 97.7, pulse 70 respirations 16 and blood pressure 133/85; SpO2 of 91% We will order stat EKG and trend troponin; consult cardiology She is on Decadron 4 mg IV every 6 hours. She is also on albuterol nebulized HFA or times a day. She has not shown significant recovery since yesterday.she is afebrile. No nausea. No vomiting. No diarrhea. Chest is sore from coughing. Objective - Vital Signs Vital signs: Vital Signs Temp 97.7 F 11/06/20 08:00 Pulse 70 11/06/20 08:00 Resp 16 11/06/20 08:00 BP 133/85 11/06/20 08:00 Pulse Ox 91 L 11/06/20 08:00 Intake & Output 11/05/20 11/06/20 11/06/20 18:59 06:59 18:59 Intake Total 200 Balance 200 Intake: Oral 200 Other: Voiding Method Toilet Toilet # Voids 2 2 - Exam - Constitutional General appearance: Present: average body habitus, cooperative, no acute distress - EENT Eyes: Present: anicteric sclerae, EOMI, PERRLA, normal appearance ENT: Present: hearing grossly normal, normal oropharynx Ears: bilateral: normal - Neck Neck: Present: normal ROM. Absent: lymphadenopathy, rigidity, thyromegaly Carotids: negative: bruit present Thyroid: bilateral: normal size, negative: enlarged, nodule - Respiratory Respiratory: bilateral: CTA, negative: rales, rhonchi, wheezing - Cardiovascular Rhythm: regular Heart sounds: normal: S1, S2 Abnormal Heart Sounds: Absent: systolic murmur, diastolic murmur - Gastrointestinal General gastrointestinal: Present: normal bowel sounds, soft. Absent: distended, organomegaly, tenderness - Genitourinary Genitourinary Comment(s): deferred - Integumentary Integumentary: Present: normal turgor. Absent: jaundiced, rash, ulcer - Neurologic Neurologic: Present: CNII-XII intact. Absent: focal deficits - Musculoskeletal Musculoskeletal: Present: gait normal, strength equal bilaterally - Psychiatric Psychiatric: Present: A&O x's 3, appropriate affect, intact judgment & insight - Labs CBC & Chem 7: 11/05/20 05:36 11/05/20 05:36 Labs: Abnormal Lab Results - Last 24 Hours (Table) 11/06/20 11/06/20 Range/Units 07:01 11:32 POC Glucose (mg/dL) 175 H 194 H (75-99) mg/dL Microbiology - Last 24 Hours (Table) 11/04/20 19:55 Blood Culture - Preliminary Blood No Growth after 24 hours Assessment and Plan Assessment: 1. Shortness of breath secondary to acute purulent tracheobronchitis - Patient has been evaluated and started on IV Rocephin and azithromycin; pulmo nary service is consulted and recommending to give a trial of Decadron and albuterol 2. Suspect acute exacerbation of chronic obstructive pulmonary disease 3. Chronic and ongoing tobacco dependence; counseling done and need for smoking cessation; nicotine patch is admitted 4. History of fibromyalgia; patient takes oxycodone 15 mg 4 times a day, ibuprofen 400 mg every 6 hours when necessary and Flexeril 10 mg 3 times a day when necessary 5. Hypertension; losartan 100 mg daily 6. Chronic back pain; oxycodone 15 mg 4 times a day with Flexeril DVT prophylaxis; SCDs CODE STATUS; full code
[2020-11-06 21:15] LABS: Glucose,Whole Blood 213 mg/dL (75-99)
[2020-11-07] MEDS: diphenhydrAMINE 50 MG/ML 1 ML VIAL IVP PRN ×2 (06:33→12:33)
[2020-11-07] MEDS: DEXAMETHASONE SOD PHOSPHATE 4 MG/ML 1 ML VIAL IV SCH ×3 (06:33→17:06)
[2020-11-07 07:24] LABS: Glucose,Whole Blood 115 mg/dL (75-99)
[2020-11-07] MEDS ORDERED: ALBUTEROL HFA INHALER INHALATION PRN (08:45)
[2020-11-07] MEDS: SODIUM CHLORIDE 0.9% 1,000 ML IV SCH ×2 (08:45→17:07)
[2020-11-07] MEDS: ASPIRIN 81 MG PO SCH (08:45)
[2020-11-07] MEDS: HEPARIN SODIUM,PORCINE 5,000 UNIT/ML 1 ML VIAL SQ SCH ×2 (08:45→17:03)
[2020-11-07] MEDS: ASCORBIC ACID 500 MG TAB PO SCH (08:46)
[2020-11-07] MEDS: clonazePAM 0.5 MG TAB PO SCH ×2 (08:46→21:29)
[2020-11-07] MEDS: LOSARTAN 50 MG TAB PO SCH (08:46)
[2020-11-07] MEDS: ZINC SULFATE 220 MG CAP PO SCH (08:46)
[2020-11-07] MEDS: IBUPROFEN 400 MG TAB PO PRN (08:46)
[2020-11-07] MEDS: NICOTINE 14MG/24HR PATCH TRANSDERM SCH (08:47)
[2020-11-07] MEDS: VITAMIN E (DL,TOCOPHERYL ACET) 400 UNIT (180 MG) CAP PO SCH (08:47)
[2020-11-07] MEDS: IPRATROPIUM-ALBUTEROL 3 ML NEB INHALATION SCH ×4 (08:48→21:21)
[2020-11-07] MEDS: ALBUTEROL HFA INHALER INHALATION SCH ×3 (08:53→12:02)
[2020-11-07] MEDS: NITROGLYCERIN OINT 1 INCH/GM PACKET TOPICAL SCH ×2 (09:43→17:11)
--- NOTE | 2020-11-07 11:03 | P.PN ---
Subjective Progress Note Date: 11/07/20 This a very pleasant 60-year-old female patient with a known history of fibromyalgia, chronic back pain with pain stimulator, factor V, DVT, hypertension, multiple ALLERGIES. She presented here to the emergency room yesterday after a 8 day history of increased shortness of breath, dry nonproductive cough. Fever. Body aches. Nausea, diarrhea. CoVID 19 screen was negative. She denied any exposures. She lives at home with her adopted grandson. She does have chronic and ongoing tobacco dependence. She does have a rescue inhaler but no maintenance inhalers. He states she gets bronchitis typically this time of year. CT angiogram ruled out pulmonary embolism. Lung french were clear. No evidence of CoVID pneumonitis. White count 5.0. Hemoglobin 13.3. Sodium 140. Potassium 3.8. D-dimer 0.46. Creatinine 0.58. She is seen today in consultation on the regular medical floor. She is awake and alert in no acute distress. She is dyspneic with minimal exertion. She does have some end expiratory wheeze, dry nonproductive cough. She is currently afebrile. Maintaining O2 saturations in high 90s on room air. on today's evaluation of the11/06/2020 the patient is slightly jittery. She is still congested and she is having increased cough and congestion and wheezing. She is on Decadron 4 mg IV every 6 hours. She is also on albuterol nebulized HFA or times a day. She has not shown significant recovery since yesterday.she is afebrile. No nausea. No vomiting. No diarrhea. Chest is sore from coughing. 11/07/2020, the patient is being seen in follow-up. The patient was being treated for an acute COPD exacerbation. She was quite bronchospastic and wheezy. I put her on Decadron which gave her some increased anxiety as the patient gets typical side effects with systemic steroids. However, this was needed as the patient had significant cough and bronchospasm wheezing. On today's evaluation, the patient is able to take deeper breath and she is getting less short of breath less bronchospastic and less wheezy and she is breathing easier. Her chest is still sore although this is also improving. No other new complaints otherwise for now. No fever. No chills. She is on DuoNeb nebulized treatments around the clock in addition to systemic steroids. Objective - Vital Signs Vital signs: Vital Signs Temp 98.5 F 11/07/20 07:05 Pulse 76 11/07/20 07:05 Resp 18 11/07/20 07:05 BP 168/95 11/07/20 07:05 Pulse Ox 96 11/07/20 07:05 Intake & Output 11/06/20 11/07/20 11/07/20 18:59 06:59 18:59 Intake Total 200 300 Balance 200 300 Intake: Oral 200 300 Other: Voiding Method Toilet Toilet # Voids 3 1 - Exam GENERAL EXAM: Alert, pleasant 60-year-old female patient, on room air, comfortable in no apparent distress. HEAD: Normocephalic. EYES: Normal reaction of pupils, equal size. NOSE: Clear with pink turbinates. THROAT: No erythema or exudates. NECK: No masses, no JVD. CHEST: No chest wall deformity. LUNGS: Equal air entry with bilateral end expiratory wheeze, diminished. CVS: S1 and S2 normal with no audible murmur, regular rhythm. ABDOMEN: No hepatosplenomegaly, normal bowel sounds, no guarding or rigidity. SPINE: No scoliosis or deformity SKIN: No rashes CENTRAL NERVOUS SYSTEM: No focal deficits, tone is normal in all 4 extremities. EXTREMITIES: There is no peripheral edema. No clubbing, no cyanosis. Peripheral pulses are intact. - Labs CBC & Chem 7: 11/05/20 05:36 11/05/20 05:36 Labs: Abnormal Lab Results - Last 24 Hours (Table) 11/06/20 11/06/20 11/06/20 Range/Units 11:32 16:41 21:10 POC Glucose (mg/dL) 194 H 199 H 213 H (75-99) mg/dL 11/07/20 Range/Units 07:23 POC Glucose (mg/dL) 115 H (75-99) mg/dL Microbiology - Last 24 Hours (Table) 11/04/20 19:55 Blood Culture - Preliminary Blood No Growth after 48 hours Assessment and Plan Plan: 1 acute on chronic shortness of breath secondary to acute purulent tracheobronchitis, secondary to underlying COPD exacerbation 2 acute exacerbation of chronic obstructive pulmonary disease 3 Chronic and ongoing tobacco dependence 4 History of fibromyalgia 6 History of chronic back pain 7 Hypertension 8 previous history of a left lower extremity DVT and the patient is known to have factor V Leyden and the patient is currently on no anticoagulation. Her last DVT was in 2019 and she got treated and to coagulation plan Start the patient on DuoNeb nebulized treatments around the clock, clinically improving and will continue the same treatment for another 24 hours pH is done good progress. She has some nonspecific skeletal chest pain probably related to her breathing and cough and for that reason cardiology was consulted. Continue IV Decadron Promethazine 6.25 mg for cough Heparin subcu for DVT prophylaxis This patient does not have 12 at 19. Please take the patient off respiratory isolation and gave her the nebulized medications. We'll continue to follow. She is not ready for discharge at this point in time of the patient's cough and congestion and shortness of breath is still quite active.
[2020-11-07 11:53] LABS: Glucose,Whole Blood 152 mg/dL (75-99)
[2020-11-07] MEDS: TIOTROPIUM 2.5 MCG INHALER INHALATION SCH ×2 (11:57→12:02)
[2020-11-07] MEDS ORDERED: ALBUTEROL NEBULIZED 2.5 MG/3 ML INHALATION PRN (15:05)
[2020-11-07 16:34] LABS: Glucose,Whole Blood 153 mg/dL (75-99)
[2020-11-07] MEDS: ACETAMINOPHEN TAB 500 MG TAB PO PRN (17:06)
--- NOTE | 2020-11-07 17:29 | P.PN ---
Subjective Progress Note Date: 11/07/20 Principal diagnosis: Acute on chronic dyspnea Acute purulent tracheobronchitis Acute exacerbation COPD Atypical chest pain 60-year-old female patient with a known history of fibromyalgia, chronic back pain with pain stimulator, factor V, DVT, hypertension, multiple ALLERGIES. She presented here to the emergency room yesterday after a 8 day history of increased shortness of breath, dry nonproductive cough. Fever. Body aches. Nausea, diarrhea. CoVID 19 screen was negative. She denied any exposures. She lives at home with her adopted grandson. She does have chronic and ongoing tobacco dependence. She does have a rescue inhaler but no maintenance inhalers. He states she gets bronchitis typically this time of year. CT angiogram ruled out pulmonary embolism. Lung french were clear. No evidence of CoVID pneumonitis. White count 5.0. Hemoglobin 13.3. Sodium 140. Potassium 3.8. D-dimer 0.46. Creatinine 0.58. She is seen today in consultation on the [facility] medical floor. She is awake and alert in no acute distress. She is dyspneic with minimal exertion. She does have some end expiratory wheeze, dry nonproductive cough. She is currently afebrile. Maintaining O2 saturations in high 90s on room air. 11/06/2020 Patient is seen and evaluated in follow-up; pains off sharp chest pain on left rib area; vital signs are stable with a temperature of 97.7, pulse 70 respirations 16 and blood pressure 133/85; SpO2 of 91% We will order stat EKG and trend troponin; consult cardiology She is on Decadron 4 mg IV every 6 hours. She is also on albuterol nebulized HFA or times a day. She has not shown significant recovery since yesterday.she is afebrile. No nausea. No vomiting. No diarrhea. Chest is sore from coughing. 11/07/2020 Patient is seen and evaluated in room at bedside. The patient was being treated for an acute COPD exacerbation. She was quite bronchospastic and wheezy. Patient is started on Decadron by pulmonary service which gave her some increased anxiety as the patient gets typical side effects with systemic steroids. However, this was needed as the patient had significant cough and bronchospasm wheezing. On today's evaluation, the patient is able to take deeper breath and she is getting less short of breath less bronchospastic and less wheezy and she is breathing easier. Her chest is still sore although this is also improving. No other new complaints otherwise for now. No fever. No chills. She is on DuoNeb nebulized treatments around the clock in addition to systemic steroids. Patient will be continued on current management; 8 clearance by pulmonary serv ice for discharge Objective - Vital Signs Vital signs: Vital Signs Temp 98.5 F 11/07/20 07:05 Pulse 76 11/07/20 07:05 Resp 18 11/07/20 07:05 BP 168/95 11/07/20 07:05 Pulse Ox 96 11/07/20 07:05 Intake & Output 11/06/20 11/07/20 11/07/20 18:59 06:59 18:59 Intake Total 200 300 Balance 200 300 Intake: Oral 200 300 Other: Voiding Method Toilet Toilet Toilet # Voids 3 1 - Exam - Constitutional General appearance: Present: average body habitus, cooperative, no acute distress - EENT Eyes: Present: anicteric sclerae, EOMI, PERRLA, normal appearance ENT: Present: hearing grossly normal, normal oropharynx Ears: bilateral: normal - Neck Neck: Present: normal ROM. Absent: lymphadenopathy, rigidity, thyromegaly Carotids: negative: bruit present Thyroid: bilateral: normal size, negative: enlarged, nodule - Respiratory Respiratory: bilateral: CTA, negative: rales, rhonchi, wheezing - Cardiovascular Rhythm: regular Heart sounds: normal: S1, S2 Abnormal Heart Sounds: Absent: systolic murmur, diastolic murmur - Gastrointestinal General gastrointestinal: Present: normal bowel sounds, soft. Absent: distended, organomegaly, tenderness - Genitourinary Genitourinary Comment(s): deferred - Integumentary Integumentary: Present: normal turgor. Absent: jaundiced, rash, ulcer - Neurologic Neurologic: Present: CNII-XII intact. Absent: focal deficits - Musculoskeletal Musculoskeletal: Present: gait normal, strength equal bilaterally - Psychiatric Psychiatric: Present: A&O x's 3, appropriate affect, intact judgment & insight - Labs CBC & Chem 7: 11/05/20 05:36 11/05/20 05:36 Labs: Abnormal Lab Results - Last 24 Hours (Table) 11/06/20 11/06/20 11/06/20 Range/Units 11:32 16:41 21:10 POC Glucose (mg/dL) 194 H 199 H 213 H (75-99) mg/dL 11/07/20 Range/Units 07:23 POC Glucose (mg/dL) 115 H (75-99) mg/dL Microbiology - Last 24 Hours (Table) 11/04/20 19:55 Blood Culture - Preliminary Blood No Growth after 48 hours Assessment and Plan Assessment: 1. Shortness of breath secondary to acute purulent tracheobronchitis - Patient has been evaluated and started on IV Rocephin and azithromycin; pulmonary service is consulted and recommending to give a trial of Decadron and albuterol 2. Suspect acute exacerbation of chronic obstructive pulmonary disease 3. Chronic and ongoing tobacco dependence; counseling done and need for smoking cessation; nicotine patch is admitted 4. History of fibromyalgia; patient takes oxycodone 15 mg 4 times a day, ibuprofen 400 mg every 6 hours when necessary and Flexeril 10 mg 3 times a day when necessary 5. Hypertension; losartan 100 mg daily 6. Chronic back pain; oxycodone 15 mg 4 times a day with Flexeril DVT prophylaxis; SCDs CODE STATUS; full code
--- NOTE | 2020-11-07 19:44 | P.CRDCN ---
History of Present Illness History of present illness: HISTORY OF PRESENTING ILLNESS This is a pleasant 60 year old female with history of fibromyalgia, chronic back pain, Factor V, DVT, HTN, tobacco abuse who presents secondary to 8 days of SOB. She has been having chest pain for the same amount of time and feels it is sometimes associated with deep inspiration or choughing can actually improve it however not all the time. She is concerned about any heart issues. She has a grandchild that she is the sole caregiver of and is stressed about having to logistically have followups. Therefore she wants a workup in the hospital. She denies prior LHC, stress test or echo. Admits to also having increased CONSTANITNO over the last 1 year. Continues to smoke. Currently has been SOB with a cough and a mild wheeze. CTA was performed which showed no acute process. She was seen by pulm and thought to have bronchitis. Troponins were negative x 3, BNP 443, Cr normal, WBC 6.7. DIAGNOSTICS EKG reveals, sinus rhythm, PVC's. REVIEW OF SYSTEMS At the time of my exam: CONSTITUTIONAL: Denies fever or chills. CARDIOVASCULAR: +chest pain, +shortness of breath, no orthopnea, PND or palpitations. RESPIRATORY: +cough. GASTROINTESTINAL: Denies abdominal pain, diarrhea, constipation, nausea or vomiting. MUSCULOSKELETAL: Denies myalgias. NEUROLOGIC: Denies numbness, tingling or weakness. ENDOCRINE: Denies fatigue, weight change, polydipsia or polyurina. GENITOURINARY: Denies burning, hematuria or urgency with micturation. HEMATOLOGIC: Denies history of anemia or bleeding. PHYSICAL EXAMINATION Vitals reviewed CONSTITUTIONAL: Patient in no acute distress. HEENT: Head is normocephalic. Pupils are equal, round. Sclerae anicteric. Mucous membranes of the mouth are moist. No JVD. No carotid bruit. CHEST EXAMINATION: + wheeze, no rales HEART EXAMINATION: Regular rate and rhythm. S1, S2 heard. No murmurs, gallops or rub. ABDOMEN: Soft, nontender. Positive bowel sounds. EXTREMITIES: 2+ peripheral pulses, no lower extremity edema and no calf tenderness. NEUROLOGIC EXAMINATION: Patient is awake, alert and oriented x3. ASSESSMENT 1. Atypical chest pain 2. Fibromyalgia 3. Tobacco abuse 4. Acute bronchitis 5. Factor V 6. History of DVT PLAN Patient's chest pain has been atypical however also has had CONSTANTINO. Current presentation likely related to tobacco abuse and bronchitis. Patient would like inpatient workup given she needs to care for grandchild. Check 2D echo and dobutamine stress echo. If normal, patient may be discharged. Past Medical History Past Medical History: Fibromyalgia, Hypertension, Pneumonia Additional Past Medical History / Comment(s): bronchitis. History of Any Multi-Drug Resistant Organisms: None Reported Past Surgical History: Adenoidectomy, Appendectomy, Cholecystectomy, Hy sterectomy, Tonsillectomy Additional Past Surgical History / Comment(s): L5/s1 fusion. lower back stimulator. wisdom teeth. Past Anesthesia/Blood Transfusion Reactions: No Reported Reaction Past Psychological History: No Psychological Hx Reported Smoking Status: Current every day smoker Past Alcohol Use History: None Reported Past Drug Use History: None Reported - Past Family History Mother History Unknown: Yes Family Medical History: Dementia, Deep Vein Thrombosis (DVT) Sister(s) Family Medical History: Deep Vein Thrombosis (DVT) Father Family Medical History: CVA/TIA Additional Family Medical History / Comment(s): Lung Ca Brother(s) History Unknown: Yes Family Medical History: Pulmonary Embolus Medications and Allergies Home Medications Medication Instructions Recorded Confirmed Type Ascorbic Acid [Vitamin C] 500 mg PO DAILY 11/04/20 11/04/20 History Aspirin EC [Ecotrin Low Dose] 81 mg PO DAILY 11/04/20 11/04/20 History Cyclobenzaprine [Flexeril] 10 mg PO TID PRN 11/04/20 11/04/20 History Ibuprofen [Motrin Ib] 600 mg PO Q8H PRN 11/04/20 11/04/20 History Losartan Potassium 100 mg PO DAILY 11/04/20 11/04/20 History Multivitamins, Thera [Multivitamin 1 tab PO DAILY 11/04/20 11/04/20 History (formulary)] Vitamin E 400 unit PO DAILY 11/04/20 11/04/20 History Zinc 50 mg PO DAILY 11/04/20 11/04/20 History clonazePAM [KlonoPIN] 0.5 mg PO BID 11/04/20 11/04/20 History oxyCODONE HCL [oxyCODONE HCL (IR)] 15 mg PO QID 11/04/20 11/04/20 History Allergies Allergy/AdvReac Type Severity Reaction Status Date / Time azithromycin Allergy Itching Verified 11/04/20 21:17 chlorpromazine Allergy Anaphylaxis Verified 11/04/20 19:41 [From Thorazine] ciprofloxacin [From Cipro] Allergy Rash/Hives Verified 11/04/20 19:41 codeine Allergy Anaphylaxis Verified 11/04/20 19:41 gabapentin Allergy Unknown Verified 11/04/20 19:41 Gadolinium-Containing Allergy Anaphylaxis Verified 11/04/20 19:41 Contrast Medi Iodinated Contrast Media Allergy Anaphylaxis Verified 11/04/20 19:41 steroids AdvReac Confusion Uncoded 11/04/20 21:17 Physical Exam Vitals: Vital Signs Temp Pulse Pulse Resp BP Pulse Ox 11/07/20 16:35 72 11/07/20 16:25 72 11/07/20 14:00 98.2 F 83 19 148/87 11/07/20 12:08 80 11/07/20 11:57 74 11/07/20 07:05 98.5 F 76 18 168/95 96 11/07/20 01:30 98.1 F 65 20 138/76 92 L 11/06/20 20:10 97.8 F 92 20 124/83 94 L Intake and Output 11/07/20 11/07/20 11/07/20 06:59 14:59 22:59 Other: Voiding Method Toilet # Voids 1 3 Results 11/05/20 05:36 11/05/20 05:36 Cardiac Enzymes 11/07/20 11/07/20 Range/Units 09:22 12:31 Troponin I <0.012 <0.012 (0.000-0.034) ng/mL Current Medications Generic Name Dose Route Start Last Admin Trade Name Freq PRN Reason Stop Dose Admin Acetaminophen 1,000 mg 11/07/20 16:58 11/07/20 17:06 Acetaminophen Tab 500 Mg Tab PO 1,000 mg Q8HR PRN Administration Fever and/ or Pain Albuterol Sulfate 2.5 mg 11/07/20 15:05 Albuterol Nebulized 2.5 Mg/3 Ml INHALATION RT-Q2H PRN Shortness Of Breath Or Wheezing Albuterol/Ipratropium 3 ml 11/07/20 12:00 11/07/20 16:25 Ipratropium-Albuterol 3 Ml Neb INHALATION 3 ml RT-QID TREE Administration Ascorbic Acid 500 mg 11/05/20 09:00 11/07/20 08:46 Ascorbic Acid 500 Mg Tab PO 500 mg DAILY TREE Administration Aspirin 81 mg 11/05/20 09:00 11/07/20 08:45 Aspirin 81 Mg PO 81 mg DAILY TREE Administration Clonazepam 0.5 mg 11/04/20 21:00 11/07/20 08:46 Clonazepam 0.5 Mg Tab PO 0.5 mg BID TREE Administration Cyclobenzaprine HCl 10 mg 11/04/20 20:01 11/06/20 14:53 Cyclobenzaprine 10 Mg Tab PO 10 mg TID PRN Administration Muscle Spasm Dexamethasone Sodium Phosphate 4 mg 11/05/20 12:00 11/07/20 17:06 Dexamethasone Sod Phosphate 4 Mg/Ml 1 Ml Vial IV 4 mg Q6HR TREE Administration Diphenhydramine HCl 25 mg 11/05/20 17:46 11/07/20 12:33 Diphenhydramine 50 Mg/Ml 1 Ml Vial IVP 25 mg Q6HR PRN Administration Allergy Symptoms Heparin Sodium (Porcine) 5,000 unit 11/06/20 16:00 11/07/20 17:03 Heparin Sodium,Porcine 5,000 Unit/Ml 1 Ml Vial SQ 5,000 unit Q8HR TREE Administration Sodium Chloride 1,000 mls @ 100 mls/hr 11/04/20 19:15 11/07/20 17:07 Saline 0.9% IV 100 mls/hr .Q10H TREE Administration Ibuprofen 400 mg 11/04/20 19:09 11/07/20 08:46 Ibuprofen 400 Mg Tab PO 400 mg Q6HR PRN Administration Mild Pain or Fever > 100.5 Losartan Potassium 100 mg 11/05/20 09:00 11/07/20 08:46 Losartan 50 Mg Tab PO 100 mg DAILY TREE Administration Naloxone HCl 0.2 mg 11/04/20 19:09 Naloxone 0.4 Mg/Ml 1 Ml Vial IV Q2M PRN Opioid Reversal Nicotine 1 patch 11/05/20 11:30 11/07/20 08:47 Nicotine 14mg/24hr Patch TRANSDERM Not Given DAILY TREE Oxycodone HCl 15 mg 11/04/20 22:00 11/07/20 17:07 Oxycodone Hcl 5 Mg Tab PO 15 mg QID TREE Administration Vitamin E 400 unit 11/05/20 09:00 11/07/20 08:47 Vitamin E (Dl,Tocopheryl Acet) 400 Unit Cap PO 400 unit DAILY TREE Administration Zinc Sulfate 220 mg 11/05/20 09:00 11/07/20 08:46 Zinc Sulfate 220 Mg Cap PO 220 mg DAILY TREE Administration Intake and Output 11/07/20 11/07/20 11/07/20 06:59 14:59 22:59 Other: Voiding Method Toilet # Voids 1 3 11/05/20 05:36 11/05/20 05:36
[2020-11-07 20:42] LABS: Glucose,Whole Blood 216 mg/dL (75-99)
[2020-11-08] MEDS: DEXAMETHASONE SOD PHOSPHATE 4 MG/ML 1 ML VIAL IV SCH ×2 (00:38→07:22)
[2020-11-08] MEDS: HEPARIN SODIUM,PORCINE 5,000 UNIT/ML 1 ML VIAL SQ SCH (00:38)
[2020-11-08] MEDS: diphenhydrAMINE 50 MG/ML 1 ML VIAL IVP PRN ×2 (00:38→07:22)
[2020-11-08] MEDS: SODIUM CHLORIDE 0.9% 1,000 ML IV SCH (04:29)
[2020-11-08] MEDS ORDERED: DOBUTamine DRIP for NUC MED 500 MG in DEXTROSE/WATER 1 250ML.BAG IV PRN (07:00)
[2020-11-08 07:08] LABS: Glucose,Whole Blood 129 mg/dL (75-99)
[2020-11-08] MEDS: NICOTINE 14MG/24HR PATCH TRANSDERM SCH (07:27)
[2020-11-08] MEDS: IPRATROPIUM-ALBUTEROL 3 ML NEB INHALATION SCH ×3 (08:16→16:54)
[2020-11-08 08:21] VITALS: TEMP 97.6
[2020-11-08] MEDS: LOSARTAN 50 MG TAB PO SCH (08:55)
[2020-11-08] MEDS: clonazePAM 0.5 MG TAB PO SCH (08:55)
[2020-11-08] MEDS: ASPIRIN 81 MG PO SCH (08:56)
[2020-11-08] MEDS: ZINC SULFATE 220 MG CAP PO SCH (08:56)
[2020-11-08] MEDS: VITAMIN E (DL,TOCOPHERYL ACET) 400 UNIT (180 MG) CAP PO SCH (08:56)
[2020-11-08] MEDS: ASCORBIC ACID 500 MG TAB PO SCH (08:56)
--- NOTE | 2020-11-08 10:19 | ECHOF ---
Referral Reason:re: CP MEASUREMENTS -------- HEIGHT: 162.6 cm WEIGHT: 74.8 kg BP: RVIDd: 3.1 cm (< 3.3) IVSd: 1.0 cm (0.6 - 1.1) LVIDd: 4.7 cm (3.9 - 5.3) LVPWd: 1.2 cm (0.6 - 1.1) IVSs: 1.4 cm LVIDs: 4.0 cm LVPWs: 1.4 cm LAESV Index (A-L): 22.77 ml/m Ao Diam: 2.6 cm (2.0 - 3.7) AV Cusp: 1.7 cm (1.5 - 2.6) MV EXCURSION: 19.783 mm (> 18.000) MV EF SLOPE: 72 mm/s (70 - 150) EPSS: 1.2 cm MV E Ramón: 0.31 m/s MV DecT: 200 ms MV A Ramón: 0.48 m/s MV E/A Ratio: 0.65 RAP: 5.00 mmHg RVSP: 10.74 mmHg FINDINGS -------- Sinus rhythm. This was a techncally difficult study with suboptimal views, , Lumason utilized for enhancement of im ages. LV size, wall thickness and systolic function are normal, with an EF greater than 55%. The left jorge tricular size is normal. The right ventricle is normal in size. Normal LA size by volume 22+/-6 ml/m2. The right atrial size is normal. 5.0mg OF Lumason UTLIZED: 2 OR MORE WALL SEGMENTS NOT VISUALIZED. The aortic valve is trileaflet, and appears structurally normal. No aortic stenosis or regurgitation. The mitral valve is normal. Mild mitral regurgitation is present. The tricuspid valve appears structurally normal. Trace tricuspid regurgitation present. Right jorge tricular systolic pressure is normal at < 35 mmHg. Trace/mild (physiologic) pulmonic regurgitation. The aortic root size is normal. There is no pericardial effusion. CONCLUSIONS -------- 1. This was a techncally difficult study with suboptimal views, , Lumason utilized for enhancement of images. 2. LV size, wall thickness and systolic function are normal, with an EF greater than 55%. 3. Normal LA size by volume 22+/-6 ml/m2. 4. 5.0mg OF Lumason UTLIZED: 2 OR MORE WALL SEGMENTS NOT VISUALIZED. 5. The aortic valve is trileaflet, and appears structurally normal. No aortic stenosis or regurgitati on. 6. Mild mitral regurgitation is present. 7. Trace tricuspid regurgitation present. 8. Trace/mild (physiologic) pulmonic regurgitation. 9. The aortic root size is normal. 10. There is no pericardial effusion. PACKING INSPECTOR: Leatha Daniel RDCS
[2020-11-08 11:23] LABS: Glucose,Whole Blood 143 mg/dL (75-99)
--- NOTE | 2020-11-08 12:23 | ECHOS ---
STRESS ECHOCARDIOGRAM LUMASON: N/A Vial INDICATIONS: Chest pain MEDICATIONS: BASELINE HEART RATE: 68 BASELINE BLOOD PRESSURE: 155/105 MAXIMUM HEART RATE: 144 MAXIMUM BLOOD PRESSURE: 135/85 85% MPHR: 138 100% MPHR: 162 METS: N/A MAXIMUM STAGE REACHED: TOTAL EXERCISE TIME: 9:06 CLINICAL INFORMATION: Baseline rhythm is a sinus mechanism, rate of 68, normal axis and intervals, minor nonspecific ST-T wave changes. Baseline blood pressure 155/105 mmHg. Patient received an infusion of dobutamine reaching a peak rate 144 beats per minute which is equal to 88% maximum predicted heart rate. Peak blood pressure 135/85 mmHg. Electrocardiograph monitoring revealed a [address]-segment depression that resolved rapidly in recovery. Baseline echocardiogram revealed normal wall motion. At peak infusion, there was normal wall motion augmentation with no hypokinesis or dyskinesis. CONCLUSION: 1. Mildly positive electrocardiographic response to dobutamine infusion. 2. Normal stress echocardiogram with no evidence of stress-induced ischemia. MMODL / IJN: [id number] /
[2020-11-08] MEDS: ACETAMINOPHEN TAB 500 MG TAB PO PRN (12:45)
[2020-11-08 14:17] VITALS: BP 122/79; RESP 17
--- NOTE | 2020-11-08 14:24 | P.PN ---
Subjective Progress Note Date: 11/08/20 Principal diagnosis: Dyspnea This a very pleasant 60-year-old female patient with a known history of fibromyalgia, chronic back pain with pain stimulator, factor V, DVT, hypertens ion, multiple ALLERGIES. She presented here to the emergency room yesterday after a 8 day history of increased shortness of breath, dry nonproductive cough. Fever. Body aches. Nausea, diarrhea. CoVID 19 screen was negative. She denied any exposures. She lives at home with her adopted grandson. She does have chronic and ongoing tobacco dependence. She does have a rescue inhaler but no maintenance inhalers. He states she gets bronchitis typically this time of year. CT angiogram ruled out pulmonary embolism. Lung french were clear. No evidence of CoVID pneumonitis. White count 5.0. Hemoglobin 13.3. Sodium 140. Potassium 3.8. D-dimer 0.46. Creatinine 0.58. She is seen today in consultation on the regular medical floor. She is awake and alert in no acute distress. She is dyspneic with minimal exertion. She does have some end expiratory wheeze, dry nonproductive cough. She is currently afebrile. Maintaining O2 saturations in high 90s on room air. on today's evaluation of the11/06/2020 the patient is slightly jittery. She is still congested and she is having increased cough and congestion and wheezing. She is on Decadron 4 mg IV every 6 hours. She is also on albuterol nebulized HFA or times a day. She has not shown significant recovery since yesterday.she is afebrile. No nausea. No vomiting. No diarrhea. Chest is sore from coughing. 11/07/2020, the patient is being seen in follow-up. The patient was being treated for an acute COPD exacerbation. She was quite bronchospastic and wheezy. I put her on Decadron which gave her some increased anxiety as the patient gets typical side effects with systemic steroids. However, this was needed as the patient had significant cough and bronchospasm wheezing. On today's evaluation, the patient is able to take deeper breath and she is getting less short of breath less bronchospastic and less wheezy and she is breathing easier. Her chest is still sore although this is also improving. No other new complaints otherwise for now. No fever. No chills. She is on DuoNeb nebulized treatments around the clock in addition to systemic steroids. On 11/08/2020 patient seen in follow-up on medical floor, she is breathing comfortably, she states she is feeling better, she is currently on room air with pulse ox of 95%, she has had no fever or chills since admission, much less dyspneic and bronchospastic on today's exam, she continues on IV Decadron, and breathing treatments. Her workup revealed negative Covid 19 PCR, no evidence of PE, and no acute process on the CTA chest. Patient had a dobutamine stress test done today, which showed mildly positive electrocardiographic response to dobutamine infusion, and normal stress echocardiogram with no evidence of stress-induced ischemia. No compressive chest pain, she had 4 sets of negative troponins, proBNP was within normal limits. No fever or chills, no increased cough or phlegm production. Objective - Vital Signs Vital signs: Vital Signs Temp 97.6 F 11/08/20 06:55 Pulse 71 11/08/20 14:00 Resp 17 11/08/20 14:00 BP 122/79 11/08/20 14:00 Pulse Ox 95 11/08/20 14:00 Intake & Output 11/07/20 11/08/20 11/08/20 18:59 06:59 18:59 Intake Total 300 Balance 300 Weight 74.84 kg Intake: Oral 300 Other: Voiding Method Toilet Toilet # Voids 3 1 - Exam GENERAL EXAM: Alert, very pleasant, 52-year-old white female comfortable in no apparent distress. HEAD: Normocephalic/atraumatic. EYES: Normal reaction of pupils, equal size. Conjunctiva pink, sclera white. NOSE: Clear with pink turbinates. THROAT: No erythema or exudates. NECK: No masses, no JVD, no thyroid enlargement, no adenopathy. CHEST: No chest wall deformity. Symmetrical expansion. LUNGS: Equal air entry with no crackles, wheeze, rhonchi or dullness. CVS: Regular rate and rhythm, normal S1 and S2, no gallops, no murmurs, no rubs ABDOMEN: Soft, nontender. No hepatosplenomegaly, normal bowel sounds, no guar ding or rigidity. EXTREMITIES: No clubbing, no edema, no cyanosis, 2+ pulses and upper and lower extremities. MUSCULOSKELETAL: Muscle strength and tone normal. SPINE: No scoliosis or deformity SKIN: No rashes CENTRAL NERVOUS SYSTEM: Alert and oriented -3. No focal deficits, tone is normal in all 4 extremities. PSYCHIATRIC: Alert and oriented -3. Appropriate affect. Intact judgment and insight. - Labs CBC & Chem 7: 11/05/20 05:36 11/05/20 05:36 Labs: Abnormal Lab Results - Last 24 Hours (Table) 11/07/20 11/07/20 11/08/20 Range/Units 16:32 20:41 07:05 POC Glucose (mg/dL) 153 H 216 H 129 H (75-99) mg/dL 11/08/20 Range/Units 11:21 POC Glucose (mg/dL) 143 H (75-99) mg/dL Microbiology - Last 24 Hours (Table) 11/04/20 19:55 Blood Culture - Preliminary Blood No Growth after 72 hours Assessment and Plan Plan: Assessment: 1 acute on chronic shortness of breath secondary to acute purulent tracheobronchitis, secondary to underlying COPD exacerbation 2 acute exacerbation of chronic obstructive pulmonary disease 3 Chronic and ongoing tobacco dependence 4 History of fibromyalgia 6 History of chronic back pain 7 Hypertension 8 previous history of a left lower extremity DVT and the patient is known to have factor V [place] and the patient is currently on no anticoagulation. Her last DVT was in 2019 and she got treated and to coagulation Plan: We can discontinue the dexamethasone, no taper necessary, patient is breathing easier, much less dyspneic and bronchospastic, vital signs are stable, she is on room air, continue bronchodilators, patient had a dobutamine stress test today, she has had no acute events overnight. From pulmonary perspective she can be considered for discharge home today, she will need outpatient follow-up with Dr. Miramontes in 7-10 days, if she has been cleared by cardiology. I performed a history & physical examination of the patient and discussed their management with my nurse practitioner, Princess Ladd. I reviewed the nurse practitioner's note and agree with the documented findings and plan of care. Lung sounds are positive for diminished breath sounds with minimal wheezing. The findings and the impression was discussed with the patient. I attest to the documentation by the nurse practitioner. Time with Patient: Less than 30
--- NOTE | 2020-11-08 14:27 | P.PN ---
Subjective This is a pleasant 60-year-old female past medical history significant for fibromyalgia, DVT, hypertension, factor V and chronic nicotine dependence. She underwent a dobutamine stress echocardiogram today that was negative for stress-induced ischemia. Echocardiogram obtained reveals preserved LV systolic function with ejection fraction greater than 55%. Blood pressure 122/79 heart rate 71 afebrile maintaining oxygen saturation on room air. She continues to have intermittent episodes of sharp chest pain on the left precordial region that is worse with deep inspiration. GENERAL: Well-appearing, well-nourished and in no acute distress. NECK: Supple without JVD or thyromegaly. LUNGS: Diminished bilaterally, faint expiratory wheeze, no rhonchi or rales. Respiration equal and unlabored. HEART: Regular rate and rhythm without murmurs, rubs or gallops. S1 and S2 heard. EXTREMITIES: Normal range of motion, no edema. No clubbing or cyanosis. Peripheral pulses intact. ASSESSMENT Chest pain, atypical Acute bronchitis Fibromyalgia Chronic nicotine dependence Factor V PLAN Patient is likely related to acute bronchitis, no evidence of stress induced ischemia. Stable for discharge from a cardiac perspective. Follow-up in the office with Dr. Knox in 2 weeks. Nurse Practitioner note has been reviewed, I agree with a documented findings and plan of care. Patient was seen and examined. Objective - Vital Signs Vital signs: Vital Signs Temp 97.6 F 11/08/20 06:55 Pulse 71 11/08/20 14:00 Resp 17 11/08/20 14:00 BP 122/79 11/08/20 14:00 Pulse Ox 95 11/08/20 14:00 Intake & Output 11/07/20 11/08/20 11/08/20 18:59 06:59 18:59 Intake Total 300 Balance 300 Weight 74.84 kg Intake: Oral 300 Other: Voiding Method Toilet Toilet # Voids 3 1 - Labs CBC & Chem 7: 11/05/20 05:36 11/05/20 05:36 Labs: Abnormal Lab Results - Last 24 Hours (Table) 11/07/20 11/07/20 11/08/20 Range/Units 16:32 20:41 07:05 POC Glucose (mg/dL) 153 H 216 H 129 H (75-99) mg/dL 11/08/20 Range/Units 11:21 POC Glucose (mg/dL) 143 H (75-99) mg/dL Microbiology - Last 24 Hours (Table) 11/04/20 19:55 Blood Culture - Preliminary Blood No Growth after 72 hours
--- NOTE | 2020-11-08 16:55 | P.DS ---
Providers Date of admission: 11/04/20 19:12 Attending physician: Marcelino Navarro MD Consults: 11/04/20 19:11 Consult Physician Urgent Consulting Provider: Shanon Miramontes Consult Reason/Comments: acute hypoxic resp failure Do you want consulting provider notified?: Yes 11/06/20 14:17 Consult Physician Urgent Consulting Provider: Wes Knox Consult Reason/Comments: Chest pain Do you want consulting provider notified?: Yes Primary care physician: Physician Nonstaff Hospital Course: 60-year-old female patient with a known history of fibromyalgia, chronic back pain with pain stimulator, factor V, DVT, hypertension, multiple ALLERGIES. She presented here to the emergency room yesterday after a 8 day history of increased shortness of breath, dry nonproductive cough. Fever. Body aches. Nausea, diarrhea. CoVID 19 screen was negative. She denied any exposures. She lives at home with her adopted grandson. She does have chronic and ongoing tobacco dependence. She does have a rescue inhaler but no maintenance inhalers. He states she gets bronchitis typically this time of year. CT angiogram ruled out pulmonary embolism. Lung french were clear. No evidence of CoVID pneumonit is. White count 5.0. Hemoglobin 13.3. Sodium 140. Potassium 3.8. D-dimer 0.46. Creatinine 0.58. She is seen today in consultation on the regular medical floor. She is awake and alert in no acute distress. She is dyspneic with minimal exertion. She does have some end expiratory wheeze, dry nonproductive cough. She is currently afebrile. Maintaining O2 saturations in high 90s on room air. 11/06/2020 Patient is seen and evaluated in follow-up; pains off sharp chest pain on left rib area; vital signs are stable with a temperature of 97.7, pulse 70 respirations 16 and blood pressure 133/85; SpO2 of 91% We will order stat EKG and trend troponin; consult cardiology She is on Decadron 4 mg IV every 6 hours. She is also on albuterol nebulized HFA or times a day. She has not shown significant recovery since yesterday.she is afebrile. No nausea. No vomiting. No diarrhea. Chest is sore from coughing. 11/07/2020 Patient is seen and evaluated in room at bedside. The patient was being treated for an acute COPD exacerbation. She was quite bronchospastic and wheezy. Patient is started on Decadron by pulmonary service which gave her some increased anxiety as the patient gets typical side effects with systemic steroids. However, this was needed as the patient had significant cough and bronchospasm wheezing. On today's evaluation, the patient is able to take deeper breath and she is getting less short of breath less bronchospastic and less wheezy and she is breathing easier. Her chest is still sore although this is also improving. No other new complaints otherwise for now. No fever. No chills. She is on DuoNeb nebulized treatments around the clock in addition to systemic steroids. Patient will be continued on current management; 8 clearance by pulmonary service for discharge 11/08/2020 Patient doesn't have any wheezing at this time I do not believe patient will require any more antibiotics patient was treated for bronchitis patient will be given prescription for inhaled steroids and the albuterol. Patient was evaluated by cardiology and patient had a stress test which was negative patient chest pain appears to be musculoskeletal. Patient is complaining of dizziness which is mostly benign push vertigo clinically. PHYSICAL EXAMINATION: GENERAL: The patient is alert and oriented x3, not in any acute distress. Well developed, well nourished. HEENT: Pupils are round and equally reacting to light. EOMI. No scleral icterus. No conjunctival pallor. Normocephalic, atraumatic. No pharyngeal erythema. No thyromegaly. CARDIOVASCULAR: S1 and S2 present. No murmurs, rubs, or gallops. PULMONARY: Chest is clear to auscultation, no wheezing or crackles. ABDOMEN: Soft, nontender, nondistended, normoactive bowel sounds. No palpable organomegaly. MUSCULOSKELETAL: No joint swelling or deformity. EXTREMITIES: No cyanosis, clubbing, or pedal edema. NEUROLOGICAL: Gross neurological examination did not reveal any focal deficits. SKIN: No rashes. Assessment and Plan Assessment: 1. Shortness of breath secondary to acute purulent tracheobronchitis and possible COPD exacerbation 2. As pain: Musculoskeletal patient had a stress test which was negative 3. Chronic and ongoing tobacco dependence; counseling done and need for smoking cessation; nicotine patch is admitted 4. History of fibromyalgia; patient takes oxycodone 15 mg 4 times a day, ibuprofen 400 mg every 6 hours when necessary and Flexeril 10 mg 3 times a day when necessary 5. Hypertension; losartan 100 mg daily 6. Chronic back pain; oxycodone 15 mg 4 times a day with Flexeril 7. Benign positional vertigo Patient Condition at Discharge: Stable Plan - Discharge Summary Discharge Rx Participant: Yes New Discharge Prescriptions: New Meclizine [Antivert] 25 mg PO TID PRN #20 tab PRN Reason: Vertigo Famotidine [Pepcid] 20 mg PO BID #30 tablet Budesonide-Formot 160-4.5 Mcg [Symbicort 160-4.5 Mcg Inhaler] 2 puff INHALATION BID #1 inhaler Albuterol Inhaler [Ventolin Hfa Inhaler] 2 puff INHALATION RT-QID PRN #1 inhaler PRN Reason: Shortness Of Breath Or Wheezing Continue Multivitamins, Thera [Multivitamin (formulary)] 1 tab PO DAILY clonazePAM [KlonoPIN] 0.5 mg PO BID Zinc 50 mg PO DAILY Vitamin E 400 unit PO DAILY Losartan Potassium 100 mg PO DAILY Aspirin EC [Ecotrin Low Dose] 81 mg PO DAILY Ascorbic Acid [Vitamin C] 500 mg PO DAILY oxyCODONE HCL [oxyCODONE HCL (IR)] 15 mg PO QID Ibuprofen [Motrin Ib] 600 mg PO Q8H PRN PRN Reason: Pain Cyclobenzaprine [Flexeril] 10 mg PO TID PRN PRN Reason: Muscle Spasm Discharge Medication List Ascorbic Acid [Vitamin C] 500 mg PO DAILY 11/04/20 [History] Aspirin EC [Ecotrin Low Dose] 81 mg PO DAILY 11/04/20 [History] Cyclobenzaprine [Flexeril] 10 mg PO TID PRN 11/04/20 [History] Ibuprofen [Motrin Ib] 600 mg PO Q8H PRN 11/04/20 [History] Losartan Potassium 100 mg PO DAILY 11/04/20 [History] Multivitamins, Thera [Multivitamin (formulary)] 1 tab PO DAILY 11/04/20 [History] Vitamin E 400 unit PO DAILY 11/04/20 [History] Zinc 50 mg PO DAILY 11/04/20 [History] clonazePAM [KlonoPIN] 0.5 mg PO BID 11/04/20 [History] oxyCODONE HCL [oxyCODONE HCL (IR)] 15 mg PO QID 11/04/20 [History] Albuterol Inhaler [Ventolin Hfa Inhaler] 2 puff INHALATION RT-QID PRN #1 inhaler 11/08/20 [Rx] Budesonide-Formot 160-4.5 Mcg [Symbicort 160-4.5 Mcg Inhaler] 2 puff INHALATION BID #1 inhaler 11/08/20 [Rx] Famotidine [Pepcid] 20 mg PO BID #30 tablet 11/08/20 [Rx] Meclizine [Antivert] 25 mg PO TID PRN #20 tab 11/08/20 [Rx] Follow up Appointment(s)/Referral(s): Wes Knox DO [STAFF PHYSICIAN] - 2 Weeks Nonstaff,Physician [Primary Care Provider] - 3 Days Nisha Nathan MD [REFERRING] - 1 Week Shanon Miramontes MD [STAFF PHYSICIAN] - 12/08/20 9:00 am Patient Instructions/Handouts: Hypoxia (GEN), Chronic Respiratory Failure (DC) Discharge Disposition: HOME SELF-CARE
[2020-11-08 17:01] LABS: Glucose,Whole Blood 140 mg/dL (75-99)
[2020-11-08 17:05] VITALS: PULSE 70
== END 2020-11-08 18:51 | disposition home or self-care (01) | DRG 202 ==
LOC: EC 17:00 → 4SSUR 19:12
PROVIDERS: ADMIT Internal Medicine; ATTEND Internal Medicine
DX: J20.9 Acute bronchitis, unspecified (principal); J44.0 Chronic obstructive pulmonary disease with (acute) lower respiratory infection; D68.51 Activated protein C resistance; J44.1 Chronic obstructive pulmonary disease with (acute) exacerbation; Z20.822 Contact with and (suspected) exposure to COVID-19; F17.200 Nicotine dependence, unspecified, uncomplicated; I10 Essential (primary) hypertension; M79.7 Fibromyalgia; G89.29 Other chronic pain; I49.3 Ventricular premature depolarization; R00.0 Tachycardia, unspecified; R09.02 Hypoxemia; H81.10 Benign paroxysmal vertigo, unspecified ear; F41.9 Anxiety disorder, unspecified; Z71.6 Tobacco abuse counseling; Z79.82 Long term (current) use of aspirin; Z79.891 Long term (current) use of opiate analgesic; Z79.899 Other long term (current) drug therapy; Z90.49 Acquired absence of other specified parts of digestive tract; Z90.710 Acquired absence of both cervix and uterus; Z98.890 Other specified postprocedural states; Z98.1 Arthrodesis status; Z86.718 Personal history of other venous thrombosis and embolism; Z87.01 Personal history of pneumonia (recurrent); Z88.5 Allergy status to narcotic agent; Z88.8 Allergy status to other drugs, medicaments and biological substances; Z88.1 Allergy status to other antibiotic agents; Z91.041 Radiographic dye allergy status; Z82.0 Family history of epilepsy and other diseases of the nervous system; Z82.49 Family history of ischemic heart disease and other diseases of the circulatory system; Z80.1 Family history of malignant neoplasm of trachea, bronchus and lung; Z82.3 Family history of stroke
CPT/HCPCS: 36415; 71275; 80048; 80053; 81003; 83605; 83880; 84484; 85025; 85379; 85610; 85730; 87040; 87635; 93005; 93306; 93351; 94640; 96365; 96375; 99285

== ENCOUNTER 2022-05-29 15:38 | Inpatient (IN) | payer MEDICARE ==
[2022-05-29] MEDS ORDERED: SODIUM CHLORIDE 0.9% 500 ML 500 ML IV STA (15:53)
[2022-05-29] MEDS ORDERED: METOCLOPRAMIDE 5 MG/ML 2 ML VIAL IVP STA (16:12)
[2022-05-29] MEDS ORDERED: fentaNYL (PF) 50 MCG/ML 2 ML AMP IVP STA (16:12)
--- NOTE | 2022-05-29 16:18 | ED ---
Abdominal Pain HPI - General Chief Complaint: Abdominal Pain Stated Complaint: abd & chest pain Time Seen by Provider: 05/29/22 15:52 Source: patient, EMS, RN notes reviewed, old records reviewed Mode of arrival: EMS Limitations: no limitations - History of Present Illness Initial Comments: 62-year-old, nontoxic-appearing female presents to the emergency room with complaints of epigastric abdominal pain that started at 9:00 this morning after drinking 2 cups of coffee. Patient states that she had a good bowel movement at 11:00 that was normal. She states she soon developed this epigastric pain that goes into her back and left lower quadrant. She does have history of irritable bowel syndrome, fibromyalgia, chronic back pain and hypertension. Patient's has a surgical history of cholecystectomy, appendectomy, L5-S1 fusion with a stimulator in her right lower back. She did undergo an echocardiogram stress test in November of this year that was normal. She denies any chest pain or difficulty breathing. Denies any fevers, nausea vomiting or diarrhea. MD Complaint: abdominal pain -: hour(s) (7) Location: epigastric Radiation: LLQ, back Severity scale (1-10): 10 Quality: other (waves) Consistency: intermittent Associated Symptoms: other (belching) - Related Data Home Medications Medication Instructions Recorded Confirmed Ascorbic Acid [Vitamin C] 500 mg PO DAILY 11/04/20 11/04/20 Aspirin EC [Ecotrin Low Dose] 81 mg PO DAILY 11/04/20 11/04/20 Cyclobenzaprine [Flexeril] 10 mg PO TID PRN 11/04/20 11/04/20 Ibuprofen [Motrin Ib] 600 mg PO Q8H PRN 11/04/20 11/04/20 Losartan Potassium 100 mg PO DAILY 11/04/20 11/04/20 Multivitamins, Thera [Multivitamin 1 tab PO DAILY 11/04/20 11/04/20 (formulary)] Vitamin E 400 unit PO DAILY 11/04/20 11/04/20 Zinc 50 mg PO DAILY 11/04/20 11/04/20 clonazePAM [KlonoPIN] 0.5 mg PO BID 11/04/20 11/04/20 oxyCODONE HCL [oxyCODONE HCL (IR)] 15 mg PO QID 11/04/20 11/04/20 Previous Rx's Medication Instructions Recorded Albuterol Inhaler [Ventolin Hfa 2 puff INHALATION RT-QID PRN #1 11/08/20 Inhaler] inhaler Budesonide-Formot 160-4.5 Mcg 2 puff INHALATION BID #1 inhaler 11/08/20 [Symbicort 160-4.5 Mcg Inhaler] Famotidine [Pepcid] 20 mg PO BID #30 tablet 11/08/20 Meclizine [Antivert] 25 mg PO TID PRN #20 tab 11/08/20 Allergies Allergy/AdvReac Type Severity Reaction Status Date / Time azithromycin Allergy Itching Verified 11/04/20 21:17 chlorpromazine Allergy Anaphylaxis Verified 11/04/20 19:41 [From Thorazine] ciprofloxacin [From Cipro] Allergy Rash/Hives Verified 11/04/20 19:41 codeine Allergy Anaphylaxis Verified 11/04/20 19:41 gabapentin Allergy Unknown Verified 11/04/20 19:41 Gadolinium-Containing Allergy Anaphylaxis Verified 11/04/20 19:41 Contrast Medi Iodinated Contrast Media Allergy Anaphylaxis Verified 11/04/20 19:41 morphine Allergy Swelling Verified 05/29/22 15:41 hydromorphone [From Dilaudid] AdvReac Unknown Verified 05/29/22 15:41 steroids AdvReac Confusion Uncoded 11/04/20 21:17 Review of Systems ROS Statement: Those systems with pertinent positive or pertinent negative responses have been documented in the HPI. ROS Other: All systems not noted in ROS Statement are negative. Past Medical History Past Medical History: Fibromyalgia, Hypertension, Pneumonia Additional Past Medical History / Comment(s): bronchitis. History of Any Multi-Drug Resistant Organisms: None Reported Past Surgical History: Adenoidectomy, Appendectomy, Cholecystectomy, Hysterectomy, Tonsillectomy Additional Past Surgical History / Comment(s): L5/s1 fusion. lower back stimulator. wisdom teeth. Past Anesthesia/Blood Transfusion Reactions: No Reported Reaction Past Psychological History: No Psychological Hx Reported Smoking Status: Current every day smoker Past Alcohol Use History: Occasional Past Drug Use History: None Reported - Past Family History Mother History Unknown: Yes Family Medical History: Dementia, Deep Vein Thrombosis (DVT) Sister(s) Family Medical History: Deep Vein Thrombosis (DVT) Father Family Medical History: CVA/TIA Additional Family Medical History / Comment(s): Lung Ca Brother(s) History Unknown: Yes Family Medical History: Pulmonary Embolus General Exam Limitations: no limitations General appearance: alert, in no apparent distress Head exam: Present: atraumatic Eye exam: Absent: scleral icterus ENT exam: Present: mucous membranes moist Neck exam: Absent: meningismus Respiratory exam: Present: normal lung sounds bilaterally. Absent: respiratory distress, wheezes, rales, rhonchi, stridor, chest wall tenderness, accessory muscle use Cardiovascular Exam: Present: regular rate GI/Abdominal exam: Present: soft, tenderness (Epigastric and left lower quadrant). Absent: distended, guarding, rebound, rigid Extremities exam: Present: normal capillary refill. Absent: pedal edema Back exam: Present: full ROM, other (Surgical scars). Absent: tenderness, CVA tenderness (R), CVA tenderness (L), rash noted Neurological exam: Present: alert, oriented X3 Psychiatric exam: Present: normal affect, normal mood Skin exam: Present: warm, dry, normal color. Absent: cyanosis, diaphoretic, petechiae, pallor Course Vital Signs 05/29/22 15:43 Temperature 97.5 F L Pulse Rate 99 Respiratory 22 Rate Blood Pressure 167/104 O2 Sat by Pulse 99 Oximetry Medical Decision Making - Medical Decision Making CT show mild fat stranding around head and body of pancreas consistent with acute pancreatitis. Lipase elevated at 1697. No evidence of leukocytosis or lactic acidosis. On further questioning patient states that she does not drink alcohol daily but has had alcohol last 2 nights. Patient has had a cholecystectomy in the past. Case discussed with Dr. Olivares, patient will be admitted with acute pancreatitis. Results discussed with patient and she is agreeable to admission. - Lab Data Result diagrams: 05/29/22 16:05 05/29/22 16:05 Lab Results 05/29/22 05/29/22 05/29/22 Range/Units 16:05 16:05 16:05 WBC 8.5 (3.8-10.6) k/uL RBC 4.58 (3.80-5.40) m/uL Hgb 15.1 (11.4-16.0) gm/dL Hct 46.4 H (34.0-46.0) % MCV 101.3 H (80.0-100.0) fL MCH 33.0 (25.0-35.0) pg MCHC 32.6 (31.0-37.0) g/dL RDW 12.1 (11.5-15.5) % Plt Count 212 (150-450) k/uL MPV 7.2 Neutrophils % 75 % Lymphocytes % 18 % Monocytes % 5 % Eosinophils % 1 % Basophils % 0 % Neutrophils # 6.4 (1.3-7.7) k/uL Lymphocytes # 1.5 (1.0-4.8) k/uL Monocytes # 0.4 (0-1.0) k/uL Eosinophils # 0.1 (0-0.7) k/uL Basophils # 0.0 (0-0.2) k/uL PT 10.6 (9.0-12.0) sec INR 1.0 (<1.2) APTT 20.2 L (22.0-30.0) sec Sodium 133 L (137-145) mmol/L Potassium 3.6 (3.5-5.1) mmol/L Chloride 99 (98-107) mmol/L Carbon Dioxide 25 (22-30) mmol/L Anion Gap 9 mmol/L BUN 11 (7-17) mg/dL Creatinine 0.60 (0.52-1.04) mg/dL Est GFR (CKD-EPI)AfAm >90 (>60 ml/min/1.73 sqM) Est GFR (CKD-EPI)NonAf >90 (>60 ml/min/1.73 sqM) Glucose 102 H (74-99) mg/dL Plasma Lactic Acid Kaz (0.7-2.0) mmol/L Calcium 8.4 (8.4-10.2) mg/dL Total Bilirubin 0.5 (0.2-1.3) mg/dL AST 118 H (14-36) U/L ALT 67 H (4-34) U/L Alkaline Phosphatase 95 (38-126) U/L Troponin I (0.000-0.034) ng/mL Total Protein 6.0 L (6.3-8.2) g/dL Albumin 3.9 (3.5-5.0) g/dL Amylase 146 H (30-110) U/L Lipase 1697 H (23-300) U/L 09/26/22 09/26/22 Range/Units 16:05 16:05 WBC (3.8-10.6) k/uL RBC (3.80-5.40) m/uL Hgb (11.4-16.0) gm/dL Hct (34.0-46.0) % MCV (80.0-100.0) fL MCH (25.0-35.0) pg MCHC (31.0-37.0) g/dL RDW (11.5-15.5) % Plt Count (150-450) k/uL MPV Neutrophils % % Lymphocytes % % Monocytes % % Eosinophils % % Basophils % % Neutrophils # (1.3-7.7) k/uL Lymphocytes # (1.0-4.8) k/uL Monocytes # (0-1.0) k/uL Eosinophils # (0-0.7) k/uL Basophils # (0-0.2) k/uL PT (9.0-12.0) sec INR (<1.2) APTT (22.0-30.0) sec Sodium (137-145) mmol/L Potassium (3.5-5.1) mmol/L Chloride (98-107) mmol/L Carbon Dioxide (22-30) mmol/L Anion Gap mmol/L BUN (7-17) mg/dL Creatinine (0.52-1.04) mg/dL Est GFR (CKD-EPI)AfAm (>60 ml/min/1.73 sqM) Est GFR (CKD-EPI)NonAf (>60 ml/min/1.73 sqM) Glucose (74-99) mg/dL Plasma Lactic Acid Kaz 1.2 (0.7-2.0) mmol/L Calcium (8.4-10.2) mg/dL Total Bilirubin (0.2-1.3) mg/dL AST (14-36) U/L ALT (4-34) U/L Alkaline Phosphatase (38-126) U/L Troponin I <0.012 (0.000-0.034) ng/mL Total Protein (6.3-8.2) g/dL Albumin (3.5-5.0) g/dL Amylase (30-110) U/L Lipase (23-300) U/L - EKG Data EKG shows normal: sinus rhythm (Ventricular rate 96, UT interval 0.136, QRS 0.101, QTC 0.432, normal axis) Disposition Clinical Impression: Pancreatitis Disposition: ADMITTED IP TO THIS HOSP Referrals: Anselmo Spann DO [Primary Care Provider] - 1-2 days Decision Date: 05/29/22 Decision Time: 17:30
[2022-05-29 16:31] LABS: Basophils % (A) 0 %; Eosinophils # (A) 0.1 k/uL (0-0.7); Eosinophils % (A) 1 %; HCT 46.4 % (34.0-46.0); HGB 15.1 gm/dL (11.4-16.0); Lymphocytes # (A) 1.5 k/uL (1.0-4.8); Lymphocytes % (A) 18 %; MCHC 32.6 g/dL (31.0-37.0); MCV 101.3 fL (80.0-100.0); Mean Platelet Volume 7.2; Monocytes # (A) 0.4 k/uL (0-1.0); Monocytes % (A) 5 %; Neutrophils # (A) 6.4 k/uL (1.3-7.7); Neutrophils % (A) 75 %; Platelet Count 212 k/uL (150-450); RBC 4.58 m/uL (3.80-5.40); RDW 12.1 % (11.5-15.5); WBC 8.5 k/uL (3.8-10.6)
[2022-05-29 16:36] LABS: ALT 67 U/L (4-34); AST 118 U/L (14-36); African American GFR (CKD) >90 (>60 ml/min/1.73 sqM); Albumin 3.9 g/dL (3.5-5.0); Alkaline Phosphatase 95 U/L (38-126); Amylase 146 U/L (30-110); Anion Gap 9 mmol/L; Blood Urea Nitrogen 11 mg/dL (7-17); Calcium 8.4 mg/dL (8.4-10.2); Carbon Dioxide 25 mmol/L (22-30); Chloride 99 mmol/L (98-107); Glucose 102 mg/dL (74-99); Lipase 1697 U/L (23-300); Non-African American GFR(CKD) >90 (>60 ml/min/1.73 sqM); Potassium 3.6 mmol/L (3.5-5.1); Sodium 133 mmol/L (137-145); Total Bilirubin 0.5 mg/dL (0.2-1.3)
[2022-05-29 16:39] LABS: Partial Thromboplastin Time 20.2 sec (22.0-30.0); Prothrombin Time 10.6 sec (9.0-12.0)
--- NOTE | 2022-05-29 17:05 | CT ---
EXAMINATION TYPE: CT abdomen pelvis wo con DATE OF EXAM: 05/29/2022 COMPARISON: None HISTORY: epigastric pain CT DLP: 578.6 mGycm Automated exposure control for dose reduction was used. Images obtained from the diaphragm to the floor of the pelvis with no contrast. There is 1 cm calcified granuloma at the right lung base. No pleural effusion. Heart size is normal. No pericardial effusion. Liver and spleen are intact. There are clips from cholecystectomy. The bile ducts are not dilated. St omach is intact. There is some mild fat stranding around the pancreatic head and body. There is no adrenal mass. Kidneys have normal size. No hydronephrosis. No retroperitoneal adenopathy. Ureters are not dilated. Bladder distends smoothly. No inguinal hernia. No free fluid in the pelvis. No pelvic mass. There is no mesenteric edema. No bowel obstruction. No sign of free air. There is neural stimulator i mplanted over the posterior right side lower lumbar spine. IMPRESSION: Mild fat stranding around the head and body of the pancreas consistent with acute pancreatitis. No di lated ducts.
[2022-05-29] MEDS ORDERED: IBUPROFEN 400 MG TAB PO PRN (17:28)
[2022-05-29] MEDS ORDERED: ACETAMINOPHEN TAB 325 MG TAB PO PRN (17:28)
[2022-05-29] MEDS ORDERED: NALOXONE 0.4 MG/ML 1 ML VIAL IV PRN (17:28)
[2022-05-29] MEDS ORDERED: fentaNYL (PF) 50 MCG/ML 2 ML AMP IVP PRN (17:33)
[2022-05-29] MEDS ORDERED: PANTOPRAZOLE 40 MG/10 ML VIAL IV SCH (17:45)
[2022-05-29] MEDS: SODIUM CHLORIDE 0.9% 1,000 ML IV SCH (18:28)
[2022-05-29] MEDS ORDERED: ALBUTEROL NEBULIZED 2.5 MG/3 ML INHALATION PRN (18:34)
[2022-05-29 18:53] LABS: Appearance,Urine Clear (Clear); Bilirubin,Urine Negative (Negative); Blood,Urine Negative (Negative); Color,Urine Colorless; Glucose,Urine (UA) Negative (Negative); Ketones,Urine Negative (Negative); Leukocyte Esterase,Urine Negative (Negative); Nitrite,Urine Negative (Negative); PH, Urine 6.5 (5.0-8.0); Protein,Urine Negative (Negative); Specific Gravity,Urine 1.003 (1.001-1.035); Urobilinogen,Urine <2.0 mg/dL (<2.0)
[2022-05-29] MEDS: KETOROLAC 15 MG/ML 1 ML VIAL IVP PRN (21:35)
[2022-05-29] MEDS: PANTOPRAZOLE 40 MG/10 ML VIAL IV SCH (21:35)
[2022-05-29] MEDS: SIMETHICONE 80 MG CHEWABLE PO SCH ×2 (21:36→21:41)
[2022-05-29] MEDS: HYDROmorphone 0.5 MG/0.5 ML SYRINGE IVP PRN (22:57)
[2022-05-30] MEDS ORDERED: KETOROLAC 15 MG/ML 1 ML VIAL IVP SCH
[2022-05-30] MEDS: HYDROmorphone 0.5 MG/0.5 ML SYRINGE IVP PRN ×6 (01:33→21:30)
[2022-05-30] MEDS: KETOROLAC 15 MG/ML 1 ML VIAL IVP PRN ×2 (05:49→13:11)
[2022-05-30] MEDS: PANTOPRAZOLE 40 MG/10 ML VIAL IV SCH ×2 (07:15→21:32)
[2022-05-30] MEDS: MONTELUKAST 10 MG TAB PO SCH (07:15)
[2022-05-30] MEDS: LOSARTAN 50 MG TAB PO SCH (07:15)
[2022-05-30] MEDS: SIMETHICONE 80 MG CHEWABLE PO SCH ×3 (07:16→21:29)
[2022-05-30] MEDS: SODIUM CHLORIDE 0.9% 1,000 ML IV SCH ×3 (09:06→17:16)
[2022-05-30] MEDS: HEPARIN SODIUM,PORCINE/PF 5,000 UNIT/0.5 ML SYRINGE SQ SCH ×2 (15:34→23:27)
--- NOTE | 2022-05-31 00:06 | P.HPIM ---
History of Present Illness H&P Date: 05/30/22 Chief Complaint: Abdominal pain Patient is a 62-year-old female with known history of hypertension, fibromyalgia, history of cholecystectomy and currently everyday smoker presents to ER with complaints of abdominal pain mainly in the epigastric region started around 9 AM yesterday after completing 2 cups of coffee and sat on the couch. Patient started having epigastric pain and goes to the back and also left lower quadrant. Patient states that she has irritable bowel syndrome and fibromyalgia and chronic back pain and hypertension. Patient follows with pain management clinic. History of L4 S1 fusion with a stimulator in her lower back. Otherwise denies any complaints of fever or chills. No chest pain or shortness of breath. Does have nausea. No chills or vomiting. No diarrhea. Denied any dysuria or hematuria. Laboratory data showed WBC 8.5 hemoglobin 15.1 and platelets 212 Sodium 133 potassium 3.6 chloride 99 bicarb is 25 BUN 11 creatinine 0.6 and AST 118 ALT 67 alk phos 95 Amylase 146 lipase 1697 Urinalysis is negative for infection CT of the abdomen pelvis showed mild fat stranding around the head and body of the pancreas consistent with acute pancreatitis. No dilated ducts. EKG showed sinus rhythm with frequent ectopic premature complexes. Patient states that she did drink alcohol 2 days ago. Review of Systems Constitutional: Patient denies any fever or chills . no Generalized weakness. Abdomen: Patient denied any nausea or vomiting. Patient does have abd. pain. No diarrhea. Cardiovascular: Patient denies any chest pain or short of breath no palpitations. Respiratory: patient denied any cough . no sputum production. No shortness of breath Neurologic: Patient denied any numbness or tingling headache. Musculoskeletal: Patient denies any complaints of joint swelling or deformity. Skin: Negative Psychiatric: Negative Endocrine: No heat or cold intolerance. No recent weight gain. Genitourinary: No dysuria or hematuria. All other 14 point ROS negative except the above Past Medical History Past Medical History: Fibromyalgia, Hypertension, Pneumonia Additional Past Medical History / Comment(s): bronchitis. History of Any Multi-Drug Resistant Organisms: None Reported Past Surgical History: Adenoidectomy, Appendectomy, Cholecystectomy, Hysterectomy, Tonsillectomy Additional Past Surgical History / Comment(s): L5/s1 fusion. lower back stimulator. wisdom teeth. Past Anesthesia/Blood Transfusion Reactions: No Reported Reaction Past Psychological History: No Psychological Hx Reported Smoking Status: Current every day smoker Past Alcohol Use History: Occasional Past Drug Use History: None Reported - Past Family History Mother History Unknown: Yes Family Medical History: Dementia, Deep Vein Thrombosis (DVT) Sister(s) Family Medical History: Deep Vein Thrombosis (DVT) Father Family Medical History: CVA/TIA Additional Family Medical History / Comment(s): Lung Ca Brother(s) History Unknown: Yes Family Medical History: Pulmonary Embolus Medications and Allergies Home Medications Medication Instructions Recorded Confirmed Type Cyclobenzaprine [Flexeril] 10 mg PO DAILY PRN 11/04/20 05/30/22 History Losartan Potassium 100 mg PO DAILY 11/04/20 05/29/22 History clonazePAM [KlonoPIN] 0.5 mg PO BID PRN 11/04/20 05/29/22 History oxyCODONE HCL [oxyCODONE HCL (IR)] 15 mg PO QID PRN 11/04/20 05/29/22 History Albuterol Inhaler [Ventolin Hfa 2 puff INHALATION RT-QID PRN #1 11/08/20 05/29/22 Rx Inhaler] inhaler Ibuprofen [Advil] 200 mg PO BID 05/29/22 05/29/22 History Montelukast [Singulair] 10 mg PO DAILY 05/29/22 05/29/22 History Allergies Allergy/AdvReac Type Severity Reaction Status Date / Time azithromycin Allergy Itching Verified 05/29/22 18:14 chlorpromazine Allergy Anaphylaxis Verified 05/29/22 18:14 [From Thorazine] ciprofloxacin [From Cipro] Allergy Rash/Hives Verified 05/29/22 18:14 codeine Allergy Anaphylaxis Verified 05/29/22 18:14 gabapentin Allergy Unknown Verified 05/29/22 18:14 Gadolinium-Containing Allergy Anaphylaxis Verified 05/29/22 18:14 Contrast Medi Iodinated Contrast Media Allergy Anaphylaxis Verified 05/29/22 18:14 morphine Allergy Swelling Verified 05/29/22 18:14 hydromorphone [From Dilaudid] AdvReac Unknown Verified 05/29/22 18:14 steroids AdvReac Confusion Uncoded 11/04/20 21:17 Physical Exam Vitals: Vital Signs Temp Pulse Pulse Resp BP BP Pulse Ox 05/30/22 08:00 98.0 F 68 16 154/94 92 L 05/30/22 02:00 98.5 F 96 15 186/79 92 L 05/29/22 20:04 88 18 152/114 96 05/29/22 20:00 97.6 F 80 18 172/119 93 L 05/29/22 18:29 96 17 161/115 96 05/29/22 15:43 97.5 F L 99 22 167/104 99 Intake and Output 05/29/22 05/30/22 05/30/22 22:59 06:59 14:59 Other: # Voids 2 Weight 70.76 kg 70.76 kg PHYSICAL EXAMINATION: Patient is lying in the bed comfortably, no acute distress, awake alert and oriented.. HEENT: Normocephalic. Neck is supple. Pupils reactive. Nostrils clear. Oral cavity is moist. Neck reveals no JVD, carotid bruits, or thyromegaly. CHEST EXAMINATION: Trachea is central. Symmetrical expansion. Lung french clear to auscultation and percussion. CARDIAC: Normal S1, S2 with no gallops. No murmurs ABDOMEN: Soft. Bowel sounds present. Epigastric tenderness. No organomegaly. No abdominal bruits. Extremities: reveal no edema. No clubbing or cyanosis Neurologically awake, alert, oriented x3 with well-coordinated movements. No focal deficits noted Skin: No rash or skin lesions. Psychiatric: Coperative. Nonsuicidal, Musculoskeletal: No joint swelling or deformity. Normal range of motion. Results CBC & Chem 7: 05/29/22 16:05 05/29/22 16:05 Labs: Abnormal Lab Results - Last 24 Hours (Table) 05/29/22 05/29/22 05/29/22 Range/Units 16:05 16:05 16:05 Hct 46.4 H (34.0-46.0) % MCV 101.3 H (80.0-100.0) fL APTT 20.2 L (22.0-30.0) sec Sodium 133 L (137-145) mmol/L Glucose 102 H (74-99) mg/dL AST 118 H (14-36) U/L ALT 67 H (4-34) U/L Total Protein 6.0 L (6.3-8.2) g/dL Amylase 146 H (30-110) U/L Lipase 1697 H (23-300) U/L Thrombosis Risk Factor Assmnt - DVT/VTE Prophylaxis DVT/VTE Prophylaxis: Pharmacologic Prophylaxis ordered - Choose All That Apply Each Factor Represents 1 point: Age 41-60 years Thrombosis Risk Factor Assessment Total Risk Factor Score: 1 Thrombosis Risk Factor Assessment Level: Low Risk Assessment and Plan Assessment: Acute pancreatitis likely alcohol related. No ductal dilation as per CT abdomen pelvis. Hypovolemic hyponatremia Fibromyalgia Irritable bowel syndrome Chronic back pain Hypertension History of cholecystectomy Currently everyday smoker and occasional alcohol use DVT prophylaxis with heparin subcu Plan: Patient will be current on IV hydration and nothing by mouth and pain management with Dilaudid. Continue with IV Protonix and follow-up closely. Current with home medications and bowel regimen. Smoking cessation and for laxness has been counseled extensively. Time with Patient: Greater than 30
[2022-05-31] MEDS: HYDROmorphone 0.5 MG/0.5 ML SYRINGE IVP PRN ×7 (00:18→20:50)
[2022-05-31] MEDS: SODIUM CHLORIDE 0.9% 1,000 ML IV SCH ×3 (00:49→20:49)
[2022-05-31] MEDS: PANTOPRAZOLE 40 MG/10 ML VIAL IV SCH ×2 (08:28→20:49)
[2022-05-31] MEDS: SIMETHICONE 80 MG CHEWABLE PO SCH ×3 (08:29→20:50)
[2022-05-31] MEDS: LOSARTAN 50 MG TAB PO SCH (08:29)
[2022-05-31] MEDS: MONTELUKAST 10 MG TAB PO SCH (08:29)
[2022-05-31] MEDS: HEPARIN SODIUM,PORCINE/PF 5,000 UNIT/0.5 ML SYRINGE SQ SCH ×2 (08:29→16:56)
[2022-05-31 11:08] LABS: African American GFR (CKD) 121.9 (60.0-200.0); Albumin 3.5 g/dL (3.8-4.9); Albumin/Globulin Ratio 1.94 (1.60-3.17); Anion Gap 8.1 mmol/L (10.00-18.00); BUN/Creat Ratio 7.6 Ratio (12.00-20.00); Blood Urea Nitrogen 3.8 mg/dL (9.0-27.0); Calcium 7.9 mg/dL (8.7-10.3); Carbon Dioxide 23.9 mmol/L (20.0-27.5); Globulin 1.8 g/dL (1.6-3.3); Non-African American GFR(CKD) 105.2 (60.0-200.0); Potassium 3.6 mmol/L (3.5-5.5); Total Bilirubin 1.1 mg/dL (0.30-1.20); Total Protein 5.3 g/dL (6.2-8.2)
[2022-05-31 11:11] LABS: Basophils # (A) 0.03 X 10*3/uL (0.00-0.10); Basophils % (A) 0.5 %; Eosinophils # (A) 0.11 X 10*3/uL (0.04-0.35); Eosinophils % (A) 1.7 %; HCT 39.6 % (37.2-46.3); HGB 14.3 g/dL (12.0-15.0); Immature Grans, Automated 0.2 %; Lymphocytes # (A) 1.75 X 10*3/uL (0.90-5.00); Lymphocytes % (A) 27.4 %; MCH 34.8 pg (27.0-32.0); MCHC 36.1 g/dL (32.0-37.0); MCV 96.4 fL (80.0-97.0); Mean Platelet Volume 9.6 fL (9.5-12.2); Monocytes # (A) 0.43 X 10*3/uL (0.20-1.00); Monocytes % (A) 6.7 %; NRBC Per 100 WBC 0 /100 WBCS (0.0-0.0); Neutrophils # (A) 4.05 X 10*3/uL (1.80-7.70); Neutrophils % (A) 63.5 %; Platelet Count 199 X 10*3/uL (140-440); RBC 4.11 X 10*6/uL (4.10-5.20); RDW 12.2 % (11.5-14.5); WBC 6.38 X 10*3/uL (4.50-10.00)
[2022-05-31 13:41] VITALS: BMI 26.7
[2022-05-31] MEDS: clonazePAM 0.5 MG TAB PO PRN (16:55)
[2022-05-31] MEDS ORDERED: cloNIDine 0.1 MG/24HR PATCH TRANSDERM PRN (18:50)
[2022-06-01] MEDS: HEPARIN SODIUM,PORCINE/PF 5,000 UNIT/0.5 ML SYRINGE SQ SCH ×3 (00:16→16:24)
[2022-06-01] MEDS: HYDROmorphone 0.5 MG/0.5 ML SYRINGE IVP PRN ×8 (00:16→22:27)
[2022-06-01] MEDS ORDERED: ONDANSETRON 4 MG/2 ML VIAL IVP PRN (03:10)
[2022-06-01] MEDS: clonazePAM 0.5 MG TAB PO PRN ×3 (04:16→22:27)
[2022-06-01] MEDS: MONTELUKAST 10 MG TAB PO SCH (07:33)
[2022-06-01] MEDS: PANTOPRAZOLE 40 MG/10 ML VIAL IV SCH ×2 (07:34→19:32)
[2022-06-01] MEDS: LOSARTAN 50 MG TAB PO SCH (07:34)
[2022-06-01] MEDS: SIMETHICONE 80 MG CHEWABLE PO SCH ×3 (07:34→22:26)
[2022-06-01 10:45] LABS: Basophils % (A) 0 %; Eosinophils # (A) 0.1 k/uL (0-0.7); Eosinophils % (A) 2 %; HCT 42.2 % (34.0-46.0); HGB 14.4 gm/dL (11.4-16.0); Lymphocytes # (A) 1.7 k/uL (1.0-4.8); Lymphocytes % (A) 25 %; MCH 33.9 pg (25.0-35.0); MCHC 34.2 g/dL (31.0-37.0); Mean Platelet Volume 7.3; Monocytes # (A) 0.4 k/uL (0-1.0); Monocytes % (A) 6 %; Neutrophils # (A) 4.6 k/uL (1.3-7.7); Neutrophils % (A) 66 %; Platelet Count 191 k/uL (150-450); RBC 4.27 m/uL (3.80-5.40); RDW 11.9 % (11.5-15.5)
[2022-06-01 10:56] LABS: ALT 69 U/L (4-34); AST 40 U/L (14-36); African American GFR (CKD) >90 (>60 ml/min/1.73 sqM); Albumin 3.4 g/dL (3.5-5.0); Albumin/Globulin Ratio 1.6; Alkaline Phosphatase 152 U/L (38-126); Anion Gap 5 mmol/L; Blood Urea Nitrogen <2 mg/dL (7-17); Calcium 7.9 mg/dL (8.4-10.2); Carbon Dioxide 24 mmol/L (22-30); Chloride 109 mmol/L (98-107); Globulin 2.1 g/dL; Glucose 100 mg/dL (74-99); Non-African American GFR(CKD) >90 (>60 ml/min/1.73 sqM); Potassium 3.7 mmol/L (3.5-5.1); Sodium 138 mmol/L (137-145); Total Bilirubin 0.9 mg/dL (0.2-1.3); Total Protein 5.5 g/dL (6.3-8.2)
[2022-06-01] MEDS: SODIUM CHLORIDE 0.9% 1,000 ML IV SCH (13:29)
[2022-06-02] MEDS: SODIUM CHLORIDE 0.9% 1,000 ML IV SCH ×2 (00:01→13:22)
[2022-06-02] MEDS: HYDROmorphone 0.5 MG/0.5 ML SYRINGE IVP PRN ×6 (01:26→20:14)
[2022-06-02] MEDS: HEPARIN SODIUM,PORCINE/PF 5,000 UNIT/0.5 ML SYRINGE SQ SCH ×3 (01:26→16:30)
[2022-06-02] MEDS: clonazePAM 0.5 MG TAB PO PRN ×2 (08:26→20:14)
[2022-06-02] MEDS: SIMETHICONE 80 MG CHEWABLE PO SCH ×3 (08:26→22:31)
[2022-06-02] MEDS: LOSARTAN 50 MG TAB PO SCH (08:26)
[2022-06-02] MEDS: PANTOPRAZOLE 40 MG/10 ML VIAL IV SCH ×2 (08:26→20:15)
[2022-06-02] MEDS: MONTELUKAST 10 MG TAB PO SCH (08:26)
--- NOTE | 2022-06-02 12:42 | P.CONS ---
History of Present Illness - Reason for Consult Consult date: 06/02/22 Pancreatitis Requesting physician: Mauro Gallardo - Chief Complaint Epigastric pain - History of Present Illness This is a pleasant 62-year-old female who presented to the emergency department 4 days ago with complaints of epigastric pain following 2 cups of coffee. She states that the epigastric pain radiated into her back and over to her left upper abdomen. She has a past medical history including irritable bowel syndrome, fibromyalgia, chronic back pain, and hypertension. She also has a history of previous back surgery. She states after she thought it was more for IBS however pain continued and she was also concerned that she may be having chest pain or cardiac symptoms so came into the emergency department for further evaluation. On admission she had labs that were consistent with an acute pancreatitis. She also underwent CT of the abdomen and pelvis without contrast that showed mild fat stranding around the head and body of the pancreas consiste nt with acute pancreatitis. No dilated ducts. She has a previous history of cholecystectomy she states for nonfunctioning gallbladder several years ago. She still experiencing some abdominal discomfort. She's been on a clear liquid diet. Lipase has improved and come down to 119. She denies any previous history of pancreatitis, he denies any new medications other than Advil gelcaps, she does admit to drinking at least 3 days a week 2-3 alcoholic beverages in the evenings. She denies any known previous liver disease. She does have elevation in her LFTs. Today's labs total bilirubin 0.9 AST 40 T 69 alkaline phosphatase 152 lipase 119 Admitting labs WBC 8.5 hemoglobin 15.1 hematocrit 46 platelet count 212,000 INR 1.0 sodium 133 potassium 3.6 BUN 11 creatinine 0.6 glucose 102 total bilirubin 0.5 AST 118 and OT 67 alkaline phosphatase 95 amylase 146 lipase 1697 Review of Systems REVIEW OF SYSTEMS: CARDIOPULMONARY: No chest pain or shortness of breath. Gastrointestinal: Epigastric pain, radiates into the left upper quadrant. No nausea or vomiting. No hematemesis, coffee-ground emesis. No rectal bleeding, or melena. GENITOURINARY: No dysuria or hematuria. MUSCULOSKELETAL: Reports normal range of motion. Chronic Joint pain. Chronic back pain. SKIN: No rashes. No jaundice. ENDOCRINE: No chills, fevers. No excessive weight gain or loss. No polydipsia or polyuria. PSYCHIATRIC: Unremarkable. NEUROLOGY: No change in mental status. Denies dizziness, headache. ENT: Vision unremarkable. CONSTITUTIONAL: No recent weight loss. No fever, chills, night sweats. Past Medical History Past Medical History: Fibromyalgia, Hypertension, Pneumonia Additional Past Medical History / Comment(s): bronchitis. History of Any Multi-Drug Resistant Organisms: None Reported Past Surgical History: Adenoidectomy, Appendectomy, Cholecystectomy, Hysterectomy, Tonsillectomy Additional Past Surgical History / Comment(s): L5/s1 fusion. lower back stimulator. wisdom teeth. Past Anesthesia/Blood Transfusion Reactions: No Reported Reaction Past Psychological History: No Psychological Hx Reported Smoking Status: Current every day smoker Past Alcohol Use History: Occasional Past Drug Use History: None Reported - Past Family History Mother History Unknown: Yes Family Medical History: Dementia, Deep Vein Thrombosis (DVT) Sister(s) Family Medical History: Deep Vein Thrombosis (DVT) Father Family Medical History: CVA/TIA Additional Family Medical History / Comment(s): Lung Ca Brother(s) History Unknown: Yes Family Medical History: Pulmonary Embolus Medications and Allergies Home Medications Medication Instructions Recorded Confirmed Type Cyclobenzaprine [Flexeril] 10 mg PO DAILY PRN 11/04/20 05/30/22 History Losartan Potassium 100 mg PO DAILY 11/04/20 05/29/22 History clonazePAM [KlonoPIN] 0.5 mg PO BID PRN 11/04/20 05/29/22 History oxyCODONE HCL [oxyCODONE HCL (IR)] 15 mg PO QID PRN 11/04/20 05/29/22 History Albuterol Inhaler [Ventolin Hfa 2 puff INHALATION RT-QID PRN #1 11/08/20 05/29/22 Rx Inhaler] inhaler Ibuprofen [Advil] 200 mg PO BID 05/29/22 05/29/22 History Montelukast [Singulair] 10 mg PO DAILY 05/29/22 05/29/22 History Allergies Allergy/AdvReac Type Severity Reaction Status Date / Time azithromycin Allergy Itching Verified 05/29/22 18:14 chlorpromazine Allergy Anaphylaxis Verified 05/29/22 18:14 [From Thorazine] ciprofloxacin [From Cipro] Allergy Rash/Hives Verified 05/29/22 18:14 codeine Allergy Anaphylaxis Verified 05/29/22 18:14 gabapentin Allergy Unknown Verified 05/29/22 18:14 Gadolinium-Containing Allergy Anaphylaxis Verified 05/29/22 18:14 Contrast Medi Iodinated Contrast Media Allergy Anaphylaxis Verified 05/29/22 18:14 morphine Allergy Swelling Verified 05/29/22 18:14 hydromorphone [From Dilaudid] AdvReac Unknown Verified 05/29/22 18:14 steroids AdvReac Confusion Uncoded 11/04/20 21:17 Physical Exam Vitals: Vital Signs Temp Pulse Resp BP Pulse Ox 06/02/22 08:00 97.9 F 82 16 138/88 93 L 06/02/22 01:19 98.3 F 64 16 146/79 91 L 06/01/22 13:58 98 F 83 18 147/90 94 L Intake and Output 06/01/22 06/02/22 06/02/22 22:59 06:59 14:59 Intake Total 240 Balance 240 Intake: Oral 240 Other: # Voids 4 General appearance: The patient is alert, oriented, appears in no acute distress. HET: Head is normocephalic and atraumatic. Conjunctiva pink. Sclera anicteric. Neck: Supple without lymphadenopathy. Trachea midline. Heart: S1 S2. Regular rate and rhythm. Lungs: Clear to auscultation. Abdomen: Soft, mild epigastric tenderness, nondistended with bowel sounds. No guarding or rigidity. Skin: No rashes. No jaundice. Extremities: Normal skin color and turgor. No pedal edema. Neurological: No focal deficits. Alert and oriented x3. Results CBC & Chem 7: 06/01/22 10:22 06/01/22 10:22 Labs: Abnormal Lab Results - Last 24 Hours (Table) 06/01/22 Range/Units 10:22 Chloride 109 H (98-107) mmol/L BUN <2 L (7-17) mg/dL Creatinine 0.43 L (0.52-1.04) mg/dL Glucose 100 H (74-99) mg/dL Calcium 7.9 L (8.4-10.2) mg/dL AST 40 H (14-36) U/L ALT 69 H (4-34) U/L Alkaline Phosphatase 152 H (38-126) U/L Total Protein 5.5 L (6.3-8.2) g/dL Albumin 3.4 L (3.5-5.0) g/dL CT scan - abdomen: report reviewed (Mild fat stranding around the head and body of the pancreas consistent with acute pancreatitis. No dilated ducts.) Assessment and Plan (1) Pancreatitis Narrative/Plan: A 62-year-old female presented to the emergency department with epigastric pain. She presented with elevated LFTs, amylase and lipase consistent with acute pancreatitis. She had a CT of the abdomen and pelvis again showing mild fat stranding around the head and body of the pancreas. No prior history of pancreatitis, denies any new medications, has had her gallbladder removed several years ago for nonfunctioning gallbladder. She does admit that she drinks at least 3 days a week 2-3 alcohol beverages in the evening. Unclear etiology of pancreatitis however likely could be alcohol induced. Due to elevated liver enzymes will order liver ultrasound, as well as hepatitis panel. However her liver enzymes are trending down. Lipase also has normalized to 119. Will order triglycerides, CADEN, IgG 4. Current Visit: Yes Status: Acute Code(s): K85.90 - ACUTE PANCREATITIS WITHOUT NECROSIS OR INFECTION, UNSP SNOMED Code(s): 93668926 (2) IBS (irritable bowel syndrome) Current Visit: Yes Status: Acute Code(s): K58.9 - IRRITABLE BOWEL SYNDROME WITHOUT DIARRHEA SNOMED Code(s): 96263622 (3) Fibromyalgia Current Visit: Yes Status: Acute Code(s): M79.7 - FIBROMYALGIA SNOMED Code(s): 816755509 Plan: 1. Continue symptomatic supportive care 2. Continue pain medication as needed 3. Protonix 40 mg daily GI prophylaxis 4. Antiemetics as needed 5. Advance diet to full liquid diet and advance as tolerated 6. Triglycerides, IGG4, CADEN ordered 7. Liver ultrasound ordered Pancreatitis likely related to underlying alcohol use, however will order further workup. Gastroenterology will be signing off for the weekend. Patient may be discharged home and follow up outpatient with gastroenterology if symptoms improve. Thank you for allowing us to participate in the care of the patient, the GI service will sign off, gastroenterology will not be available at the hospital this weekend and through next week. If further evaluation by gastroenterology is required the patient will need transfer as per the primary team's discretion. Dr. Kacie Ndiaye I agree with the dictator's note, documented as a scribe by Katy Daigle.
--- NOTE | 2022-06-02 16:14 | US ---
EXAMINATION TYPE: US liver DATE OF EXAM: 06/02/2022 COMPARISON: CT abdomen and pelvis 4 days ago. CLINICAL HISTORY: elevated lfts, pancreatitis. Elevated liver enzymes, pancreatitis TECHNIQUE: Multiple sonographic images of the right upper quadrant are obtained. FINDINGS: EXAM MEASUREMENTS: Liver Length: 15.0 cm Gallbladder Wall: Surgically absent CBD: 0.7 cm Right Kidney: 10.7 x 4.7 x 4.6 cm IMAGING NURSE NOTES:Technical limitations due to large amount of overlying bowel content Pancreas: Obscured by bowel gas Liver: appears Increased attenuation Gallbladder: Surgically absent Evidence for sonographic Fontaine's sign: no CBD: wnl Right Kidney: no evidence of hydronephrosis Suboptimal evaluation of pancreas on initial images due to shadowing from overlying bowel gas. Fat st randing surrounding the pancreatic head noted on prior CT and report. Visualized liver heterogeneousl y hyperechoic suggesting mild diffuse fatty infiltrative hepatocellular disease. No biliary dilatatio n noted after cholecystectomy. Gallbladder surgically absent. Right kidney shows no hydronephrosis. . IMPRESSION: Suboptimal study. Mild diffuse fatty infiltrative hepatocellular disease thought present.
[2022-06-02 17:38] LABS: Hepatitis A Antibody IgM Nonreactive (Nonreactive); Hepatitis B Core IgM Nonreactive (Nonreactive); Hepatitis B Surface Antigen Nonreactive (Nonreactive); Hepatitis C IgG Antibody Nonreactive (Nonreactive)
[2022-06-03] MEDS: HYDROmorphone 0.5 MG/0.5 ML SYRINGE IVP PRN ×7 (00:20→23:31)
[2022-06-03] MEDS: SODIUM CHLORIDE 0.9% 1,000 ML IV SCH ×2 (01:13→13:57)
[2022-06-03] MEDS: HEPARIN SODIUM,PORCINE/PF 5,000 UNIT/0.5 ML SYRINGE SQ SCH ×4 (01:15→23:31)
[2022-06-03] MEDS: MONTELUKAST 10 MG TAB PO SCH (07:25)
[2022-06-03] MEDS: LOSARTAN 50 MG TAB PO SCH (07:25)
[2022-06-03] MEDS: SIMETHICONE 80 MG CHEWABLE PO SCH ×3 (07:25→21:53)
[2022-06-03] MEDS: PANTOPRAZOLE 40 MG/10 ML VIAL IV SCH ×2 (07:25→21:53)
[2022-06-03] MEDS: clonazePAM 0.5 MG TAB PO PRN ×2 (07:45→19:34)
[2022-06-03 09:05] LABS: Basophils # (A) 0.03 X 10*3/uL (0.00-0.10); Basophils % (A) 0.5 %; Eosinophils # (A) 0.15 X 10*3/uL (0.04-0.35); Eosinophils % (A) 2.5 %; HCT 39.6 % (37.2-46.3); HGB 13.5 g/dL (12.0-15.0); Immature Grans, Automated 0.5 %; Lymphocytes # (A) 2.08 X 10*3/uL (0.90-5.00); Lymphocytes % (A) 34.4 %; MCH 33.9 pg (27.0-32.0); MCHC 34.1 g/dL (32.0-37.0); MCV 99.5 fL (80.0-97.0); Mean Platelet Volume 10.4 fL (9.5-12.2); Monocytes # (A) 0.43 X 10*3/uL (0.20-1.00); Monocytes % (A) 7.1 %; NRBC Per 100 WBC 0 /100 WBCS (0.0-0.0); Neutrophils # (A) 3.33 X 10*3/uL (1.80-7.70); Platelet Count 215 X 10*3/uL (140-440); RBC 3.98 X 10*6/uL (4.10-5.20); RDW 12.1 % (11.5-14.5); WBC 6.05 X 10*3/uL (4.50-10.00)
[2022-06-03 10:07] LABS: African American GFR (CKD) 114.8 (60.0-200.0); Albumin 3.4 g/dL (3.8-4.9); Albumin/Globulin Ratio 1.79 (1.60-3.17); Anion Gap 10.7 mmol/L (10.00-18.00); BUN/Creat Ratio 5.83 Ratio (12.00-20.00); Blood Urea Nitrogen 3.5 mg/dL (9.0-27.0); Calcium 8.9 mg/dL (8.7-10.3); Carbon Dioxide 25.3 mmol/L (20.0-27.5); Globulin 1.9 g/dL (1.6-3.3); Non-African American GFR(CKD) 99.1 (60.0-200.0); Potassium 3.7 mmol/L (3.5-5.5); Total Bilirubin 0.4 mg/dL (0.30-1.20); Total Protein 5.3 g/dL (6.2-8.2)
[2022-06-04] MEDS: HYDROmorphone 0.5 MG/0.5 ML SYRINGE IVP PRN ×2 (03:38→07:34)
[2022-06-04] MEDS: SODIUM CHLORIDE 0.9% 1,000 ML IV SCH (05:21)
[2022-06-04] MEDS: MONTELUKAST 10 MG TAB PO SCH (07:34)
[2022-06-04] MEDS: HEPARIN SODIUM,PORCINE/PF 5,000 UNIT/0.5 ML SYRINGE SQ SCH (07:34)
[2022-06-04] MEDS: LOSARTAN 50 MG TAB PO SCH (07:34)
[2022-06-04] MEDS: PANTOPRAZOLE 40 MG/10 ML VIAL IV SCH (07:34)
[2022-06-04] MEDS: SIMETHICONE 80 MG CHEWABLE PO SCH (07:34)
[2022-06-04 07:56] VITALS: BP 147/96; PULSE 76; RESP 22; TEMP 97.5
--- NOTE | 2022-06-04 10:26 | P.PN ---
Subjective Progress Note Date: 05/31/22 Patient is a 62-year-old female with known history of hypertension, fibromyalgia, history of cholecystectomy and currently everyday smoker presents to ER with complaints of abdominal pain mainly in the epigastric region started around 9 AM yesterday after completing 2 cups of coffee and sat on the couch. Patient started having epigastric pain and goes to the back and also left lower quadrant. Patient states that she has irritable bowel syndrome and fibromyalgia and chronic back pain and hypertension. Patient follows with pain management clinic. History of L4 S1 fusion with a stimulator in her lower back. Otherwise denies any complaints of fever or chills. No chest pain or shortness of breath. Does have nausea. No chills or vomiting. No diarrhea. Denied any dysuria or hematuria. Laboratory data showed WBC 8.5 hemoglobin 15.1 and platelets 212 Sodium 133 potassium 3.6 chloride 99 bicarb is 25 BUN 11 creatinine 0.6 and AST 118 ALT 67 alk phos 95 Amylase 146 lipase 1697 Urinalysis is negative for infection CT of the abdomen pelvis showed mild fat stranding around the head and body of the pancreas consistent with acute pancreatitis. No dilated ducts. EKG showed sinus rhythm with frequent ectopic premature complexes. Patient states that she did drink alcohol 2 days ago. 05/31/2022 Patient is currently lying in the bed. Awake alert but still complains of abdominal pain mainly in the epigastric region. Currently nothing by mouth. Continued on IV hydration and still requiring IV Dilaudid every 3 hours. No complaints of fever or chills. No chest pain or shortness of patient is also anxious. Laboratory data showed WBC 6.3 hemoglobin 14.3 and platelets 199 Sodium 133 potassium 3. 107 bicarb is 23.9 BUN 30.8 and creatinine 0.5 AST 103 ALT 111 alk phos 166 and lipase level came down to 119. Current medications reviewed. Objective - Vital Signs Vital signs: Vital Signs Temp 98.2 F 05/31/22 19:50 Pulse 92 05/31/22 19:50 Resp 17 05/31/22 19:50 BP 159/98 05/31/22 19:50 Pulse Ox 95 05/31/22 19:50 FiO2 Intake & Output 05/31/22 05/31/22 06/01/22 06:59 18:59 06:59 Intake Total 250 Balance 250 Weight 70.76 kg Intake: Oral 250 Other: Voiding Method Toilet # Voids 3 2 - Exam PHYSICAL EXAMINATION: Patient is lying in the bed comfortably, no acute distress, awake alert and oriented.. HEENT: Normocephalic. Neck is supple. Pupils reactive. Nostrils clear. Oral cavity is moist. Neck reveals no JVD, carotid bruits, or thyromegaly. CHEST EXAMINATION: Trachea is central. Symmetrical expansion. Lung french clear to auscultation and percussion. CARDIAC: Normal S1, S2 with no gallops. No murmurs ABDOMEN: Soft. Bowel sounds present. Epigastric tenderness. No guarding no rigidity. No organomegaly. No abdominal bruits. Extremities: reveal no edema. No clubbing or cyanosis Neurologically awake, alert, oriented x3 with well-coordinated movements. No focal deficits noted Skin: No rash or skin lesions. Psychiatric: Coperative. Nonsuicidal, Musculoskeletal: No joint swelling or deformity. Normal range of motion. - Labs CBC & Chem 7: 06/03/22 05:13 06/03/22 05:13 Labs: Abnormal Lab Results - Last 24 Hours (Table) 05/31/22 05/31/22 Range/Units 06:17 06:17 MCH 34.8 H (27.0-32.0) pg Anion Gap 8.10 L (10.00-18.00) mmol/L BUN 3.8 L (9.0-27.0) mg/dL Creatinine 0.5 L (0.6-1.5) mg/dL BUN/Creatinine Ratio 7.60 L (12.00-20.00) Ratio Calcium 7.9 L (8.7-10.3) mg/dL AST 103 H (13-35) U/L ALT 111 H (8-44) U/L Alkaline Phosphatase 166 H (41-126) U/L Total Protein 5.3 L (6.2-8.2) g/dL Albumin 3.5 L (3.8-4.9) g/dL Lipase 119 H (14-63) U/L Assessment and Plan Assessment: Acute pancreatitis likely alcohol related. No ductal dilation as per CT abdomen pelvis. Hypovolemic hyponatremia Elevated liver enzymes Fibromyalgia Irritable bowel syndrome Chronic back pain Hypertension History of cholecystectomy Currently everyday smoker and occasional alcohol use DVT prophylaxis with heparin subcu Plan: Patient will be current on IV hydration and nothing by mouth and pain management with Dilaudid. Continue with IV Protonix and follow-up closely. Follow up liver enzymes Current with home medications and bowel regimen. Smoking cessation and alcohol abstinence has been counseled extensively. Time with Patient: Greater than 30
--- NOTE | 2022-06-04 10:30 | P.PN ---
Subjective Progress Note Date: 06/01/22 Patient is a 62-year-old female with known history of hypertension, fibromyalgia, history of cholecystectomy and currently everyday smoker presents to ER with complaints of abdominal pain mainly in the epigastric region started around 9 AM yesterday after completing 2 cups of coffee and sat on the couch. Patient started having epigastric pain and goes to the back and also left lower quadrant. Patient states that she has irritable bowel syndrome and fibromyalgia and chronic back pain and hypertension. Patient follows with pain management clinic. History of L4 S1 fusion with a stimulator in her lower back. Otherwise denies any complaints of fever or chills. No chest pain or shortness of breath. Does have nausea. No chills or vomiting. No diarrhea. Denied any dysuria or hematuria. Laboratory data showed WBC 8.5 hemoglobin 15.1 and platelets 212 Sodium 133 potassium 3.6 chloride 99 bicarb is 25 BUN 11 creatinine 0.6 and AST 118 ALT 67 alk phos 95 Amylase 146 lipase 1697 Urinalysis is negative for infection CT of the abdomen pelvis showed mild fat stranding around the head and body of the pancreas consistent with acute pancreatitis. No dilated ducts. EKG showed sinus rhythm with frequent ectopic premature complexes. Patient states that she did drink alcohol 2 days ago. 05/31/2022 Patient is currently lying in the bed. Awake alert but still complains of abdominal pain mainly in the epigastric region. Currently nothing by mouth. Continued on IV hydration and still requiring IV Dilaudid every 3 hours. No complaints of fever or chills. No chest pain or shortness of patient is also anxious. Laboratory data showed WBC 6.3 hemoglobin 14.3 and platelets 199 Sodium 133 potassium 3. 107 bicarb is 23.9 BUN 30.8 and creatinine 0.5 AST 103 ALT 111 alk phos 166 and lipase level came down to 119. 06/01/2022 Patient is still complaining of abdominal pain mainly in the epigastric region also complains of fullness in the abdomen and bloating sensation. Able to tolerate liquids with minimal overlying intake. No compressive fever or chills. Nausea improving. Still complaints of abdominal pain. Liver enzymes are trending down. Gastrology services be consulted due to the continued symptoms. Current medications reviewed. Objective - Vital Signs Vital signs: Vital Signs Temp 98 F 06/01/22 13:58 Pulse 83 06/01/22 13:58 Resp 18 06/01/22 13:58 BP 147/90 06/01/22 13:58 Pulse Ox 94 L 06/01/22 13:58 FiO2 Intake & Output 06/01/22 06/01/22 06/02/22 06:59 18:59 06:59 Intake Total 250 Balance 250 Intake: Oral 250 Other: Voiding Method Toilet Toilet # Voids 1 - Exam PHYSICAL EXAMINATION: Patient is lying in the bed comfortably, no acute distress, awake alert and oriented.. HEENT: Normocephalic. Neck is supple. Pupils reactive. Nostrils clear. Oral cavity is moist. Neck reveals no JVD, carotid bruits, or thyromegaly. CHEST EXAMINATION: Trachea is central. Symmetrical expansion. Lung french clear to auscultation and percussion. CARDIAC: Normal S1, S2 with no gallops. No murmurs ABDOMEN: Soft. Bowel sounds present. Epigastric tenderness. No guarding no rigidity. No organomegaly. No abdominal bruits. Extremities: reveal no edema. No clubbing or cyanosis Neurologically awake, alert, oriented x3 with well-coordinated movements. No focal deficits noted Skin: No rash or skin lesions. Psychiatric: Coperative. Nonsuicidal, Musculoskeletal: No joint swelling or deformity. Normal range of motion. - Labs CBC & Chem 7: 06/03/22 05:13 06/03/22 05:13 Labs: Abnormal Lab Results - Last 24 Hours (Table) 06/01/22 Range/Units 10:22 Chloride 109 H (98-107) mmol/L BUN <2 L (7-17) mg/dL Creatinine 0.43 L (0.52-1.04) mg/dL Glucose 100 H (74-99) mg/dL Calcium 7.9 L (8.4-10.2) mg/dL AST 40 H (14-36) U/L ALT 69 H (4-34) U/L Alkaline Phosphatase 152 H (38-126) U/L Total Protein 5.5 L (6.3-8.2) g/dL Albumin 3.4 L (3.5-5.0) g/dL Assessment and Plan Assessment: Acute pancreatitis likely alcohol related. No ductal dilation as per CT abdomen pelvis. Hypovolemic hyponatremia Elevated liver enzymes Fibromyalgia Irritable bowel syndrome Chronic back pain Hypertension History of cholecystectomy Currently everyday smoker and occasional alcohol use DVT prophylaxis with heparin subcu Plan: Patient will be current on IV hydration and nothing by mouth and pain management with Dilaudid. Continue with IV Protonix and follow-up closely. Follow up liver enzymes trending down. GI evaluation due to ongoing symptoms and not improving. Current with home medications and bowel regimen. Smoking cessation and alcohol abstinence has been counseled extensively. Time with Patient: Greater than 30
--- NOTE | 2022-06-04 10:31 | P.PN ---
Subjective Progress Note Date: 06/02/22 Patient is a 62-year-old female with known history of hypertension, fibromyalgia, history of cholecystectomy and currently everyday smoker presents to ER with complaints of abdominal pain mainly in the epigastric region started around 9 AM yesterday after completing 2 cups of coffee and sat on the couch. Patient started having epigastric pain and goes to the back and also left lower quadrant. Patient states that she has irritable bowel syndrome and fibromyalgia and chronic back pain and hypertension. Patient follows with pain management clinic. History of L4 S1 fusion with a stimulator in her lower back. Otherwise denies any complaints of fever or chills. No chest pain or shortness of breath. Does have nausea. No chills or vomiting. No diarrhea. Denied any dysuria or hematuria. Laboratory data showed WBC 8.5 hemoglobin 15.1 and platelets 212 Sodium 133 potassium 3.6 chloride 99 bicarb is 25 BUN 11 creatinine 0.6 and AST 118 ALT 67 alk phos 95 Amylase 146 lipase 1697 Urinalysis is negative for infection CT of the abdomen pelvis showed mild fat stranding around the head and body of the pancreas consistent with acute pancreatitis. No dilated ducts. EKG showed sinus rhythm with frequent ectopic premature complexes. Patient states that she did drink alcohol 2 days ago. 05/31/2022 Patient is currently lying in the bed. Awake alert but still complains of abdominal pain mainly in the epigastric region. Currently nothing by mouth. Continued on IV hydration and still requiring IV Dilaudid every 3 hours. No complaints of fever or chills. No chest pain or shortness of patient is also anxious. Laboratory data showed WBC 6.3 hemoglobin 14.3 and platelets 199 Sodium 133 potassium 3. 107 bicarb is 23.9 BUN 30.8 and creatinine 0.5 AST 103 ALT 111 alk phos 166 and lipase level came down to 119. 06/01/2022 Patient is still complaining of abdominal pain mainly in the epigastric region also complains of fullness in the abdomen and bloating sensation. Able to tolerate liquids with minimal overlying intake. No compressive fever or chills. Nausea improving. Still complaints of abdominal pain. Liver enzymes are trending down. Gastrology services be consulted due to the continued symptoms. 06/02/2022 Patient is lying in the bed. Abdominal pain is slightly better. Patient was started on clear liquids and advance as tolerated. Liver enzymes are trending down. Patient was seen by gastrology and ultrasound of THE LIVER WAS ORDERED. PATIENT HAS BEEN afebrile. No complaints of chest pain or shortness breath. Nausea is controlled with medications. Denied any dysuria or hematuria. No cough or sputum production. Patient is still requiring IV Dilaudid Current medications reviewed. Objective - Vital Signs Vital signs: Vital Signs Temp 98.2 F 06/02/22 14:00 Pulse 85 06/02/22 14:00 Resp 16 06/02/22 14:00 BP 132/80 06/02/22 14:00 Pulse Ox 95 06/02/22 14:00 FiO2 Intake & Output 06/02/22 06/02/22 06/03/22 06:59 18:59 06:59 Intake Total 240 Balance 240 Intake: Oral 240 Other: Voiding Method Toilet # Voids 4 3 - Exam PHYSICAL EXAMINATION: Patient is lying in the bed comfortably, no acute distress, awake alert and oriented.. HEENT: Normocephalic. Neck is supple. Pupils reactive. Nostrils clear. Oral cavity is moist. Neck reveals no JVD, carotid bruits, or thyromegaly. CHEST EXAMINATION: Trachea is central. Symmetrical expansion. Lung french clear to auscultation and percussion. CARDIAC: Normal S1, S2 with no gallops. No murmurs ABDOMEN: Soft. Bowel sounds present. Epigastric tenderness. No guarding no rigidity. No organomegaly. No abdominal bruits. Extremities: reveal no edema. No clubbing or cyanosis Neurologically awake, alert, oriented x3 with well-coordinated movements. No focal deficits noted Skin: No rash or skin lesions. Psychiatric: Coperative. Nonsuicidal, Musculoskeletal: No joint swelling or deformity. Normal range of motion. - Labs CBC & Chem 7: 06/03/22 05:13 06/03/22 05:13 Assessment and Plan Assessment: Acute pancreatitis likely alcohol related. No ductal dilation as per CT abdomen pelvis. Hypovolemic hyponatremia Elevated liver enzymes Fibromyalgia Irritable bowel syndrome Chronic back pain Hypertension History of cholecystectomy Currently everyday smoker and occasional alcohol use DVT prophylaxis with heparin subcu Plan: Patient will be current on IV hydration and nothing by mouth and pain management with Dilaudid. Continue with IV Protonix and follow-up closely. Follow up liver enzymes trending down. GI evaluation due to ongoing symptoms and not improving. Current with home medications and bowel regimen. Smoking cessation and alcohol abstinence has been counseled extensively. Time with Patient: Greater than 30
--- NOTE | 2022-06-04 10:34 | P.PN ---
Subjective Progress Note Date: 06/03/22 Patient is a 62-year-old female with known history of hypertension, fibromyalgia, history of cholecystectomy and currently everyday smoker presents to ER with complaints of abdominal pain mainly in the epigastric region started around 9 AM yesterday after completing 2 cups of coffee and sat on the couch. Patient started having epigastric pain and goes to the back and also left lower quadrant. Patient states that she has irritable bowel syndrome and fibromyalgia and chronic back pain and hypertension. Patient follows with pain management clinic. History of L4 S1 fusion with a stimulator in her lower back. Otherwise denies any complaints of fever or chills. No chest pain or shortness of breath. Does have nausea. No chills or vomiting. No diarrhea. Denied any dysuria or hematuria. Laboratory data showed WBC 8.5 hemoglobin 15.1 and platelets 212 Sodium 133 potassium 3.6 chloride 99 bicarb is 25 BUN 11 creatinine 0.6 and AST 118 ALT 67 alk phos 95 Amylase 146 lipase 1697 Urinalysis is negative for infection CT of the abdomen pelvis showed mild fat stranding around the head and body of the pancreas consistent with acute pancreatitis. No dilated ducts. EKG showed sinus rhythm with frequent ectopic premature complexes. Patient states that she did drink alcohol 2 days ago. 05/31/2022 Patient is currently lying in the bed. Awake alert but still complains of abdominal pain mainly in the epigastric region. Currently nothing by mouth. Continued on IV hydration and still requiring IV Dilaudid every 3 hours. No complaints of fever or chills. No chest pain or shortness of patient is also anxious. Laboratory data showed WBC 6.3 hemoglobin 14.3 and platelets 199 Sodium 133 potassium 3. 107 bicarb is 23.9 BUN 30.8 and creatinine 0.5 AST 103 ALT 111 alk phos 166 and lipase level came down to 119. 06/01/2022 Patient is still complaining of abdominal pain mainly in the epigastric region also complains of fullness in the abdomen and bloating sensation. Able to tolerate liquids with minimal overlying intake. No compressive fever or chills. Nausea improving. Still complaints of abdominal pain. Liver enzymes are trending down. Gastrology services be consulted due to the continued symptoms. 06/02/2022 Patient is lying in the bed. Abdominal pain is slightly better. Patient was started on clear liquids and advance as tolerated. Liver enzymes are trending down. Patient was seen by gastrology and ultrasound of THE LIVER WAS ORDERED. PATIENT HAS BEEN afebrile. No complaints of chest pain or shortness breath. Nausea is controlled with medications. Denied any dysuria or hematuria. No cough or sputum production. Patient is still requiring IV Dilaudid 06/03/2022 Patient is more awake and oriented. Abdominal pain is better today. Patient did have a bowel movement. No complaints of chest pain or shortness breath. No fever no chills. Nausea is improving. Patient is still requiring IV Dilaudid and will be changed to by mouth. Patient is on oxycodone at home. Patient is tolerating liquid diet and advance to low-fat diet. No cough or sputum production. No other acute overnight issues. Laboratory data showed liver enzymes are normalized. Sodium 140 potassium 3.7 chloride 104 bicarb is 25.3 BUN 3.5 and creatinine 0.6 Anticipate discharge next 24-48 hours. Ultrasound of the liver showed suboptimal study. Mild diffuse fatty infiltrate of hepatocellular disease throughout present. Current medications reviewed. Objective - Vital Signs Vital signs: Vital Signs Temp 97.4 F L 06/03/22 19:54 Pulse 77 06/03/22 19:54 Resp 20 06/03/22 19:54 BP 164/106 06/03/22 19:54 Pulse Ox 93 L 06/03/22 19:54 FiO2 Intake & Output 06/03/22 06/03/22 06/04/22 06:59 18:59 06:59 Other: # Voids 2 3 - Exam PHYSICAL EXAMINATION: Patient is lying in the bed comfortably, no acute distress, awake alert and oriented.. HEENT: Normocephalic. Neck is supple. Pupils reactive. Nostrils clear. Oral cavity is moist. Neck reveals no JVD, carotid bruits, or thyromegaly. CHEST EXAMINATION: Trachea is central. Symmetrical expansion. Lung french clear to auscultation and percussion. CARDIAC: Normal S1, S2 with no gallops. No murmurs ABDOMEN: Soft. Bowel sounds present. Epigastric tenderness. No guarding no rigidity. No organomegaly. No abdominal bruits. Extremities: reveal no edema. No clubbing or cyanosis Neurologically awake, alert, oriented x3 with well-coordinated movements. No focal deficits noted Skin: No rash or skin lesions. Psychiatric: Coperative. Nonsuicidal, Musculoskeletal: No joint swelling or deformity. Normal range of motion. - Labs CBC & Chem 7: 06/03/22 05:13 06/03/22 05:13 Labs: Abnormal Lab Results - Last 24 Hours (Table) 06/03/22 06/03/22 Range/Units 05:13 05:13 RBC 3.98 L (4.10-5.20) X 10*6/uL MCV 99.5 H (80.0-97.0) fL MCH 33.9 H (27.0-32.0) pg BUN 3.5 L (9.0-27.0) mg/dL BUN/Creatinine Ratio 5.83 L (12.00-20.00) Ratio Total Protein 5.3 L (6.2-8.2) g/dL Albumin 3.4 L (3.8-4.9) g/dL Assessment and Plan Assessment: Acute pancreatitis likely alcohol related. No ductal dilation as per CT abdomen pelvis. Hypovolemic hyponatremia Elevated liver enzymes Fibromyalgia Irritable bowel syndrome Chronic back pain Hypertension History of cholecystectomy Currently everyday smoker and occasional alcohol use DVT prophylaxis with heparin subcu Plan: Patient will be current on IV hydration and nothing by mouth and pain management with Dilaudid. Continue with IV Protonix and follow-up closely. Follow up liver enzymes trending down. Patient was seen by GI. IgG4 and triglycerides level were ordered. Hepatitis panel negative.. Current with home medications and bowel regimen. Smoking cessation and alcohol abstinence has been counseled extensively. Time with Patient: Greater than 30
[2022-06-04] MEDS: clonazePAM 0.5 MG TAB PO PRN (12:00)
--- NOTE | 2022-06-11 20:26 | P.DS ---
Providers Date of admission: 05/29/22 17:20 Expected date of discharge: 06/04/22 Attending physician: Rachna Hoyt Consults: 06/01/22 13:28 Consult Physician Urgent Consulting Provider: Slime Ndiaye Consult Reason/Comments: Pancreatitis Do you want consulting provider notified?: Yes Primary care physician: [facility] Course: Discharge diagnosis Acute pancreatitis likely alcohol related. No ductal dilation as per CT abdomen pelvis. Hypovolemic hyponatremia Elevated liver enzymes Fibromyalgia Irritable bowel syndrome Chronic back pain Hypertension History of cholecystectomy Currently everyday smoker and occasional alcohol use DVT prophylaxis with heparin subcu Hospital course Patient is a 62-year-old female with known history of hypertension, fibromyalgia, history of cholecystectomy and currently everyday smoker presents to ER with complaints of abdominal pain mainly in the epigastric region started around 9 AM yesterday after completing 2 cups of coffee and sat on the couch. Patient started having epigastric pain and goes to the back and also left lower quadrant. Patient states that she has irritable bowel syndrome and fibromyalgia and chronic back pain and hypertension. Patient follows with pain management clinic. History of L4 S1 fusion with a stimulator in her lower back. Otherwise denies any complaints of fever or chills. No chest pain or shortness of breath. Does have nausea. No chills or vomiting. No diarrhea. Denied any dysuria or hematuria. Laboratory data showed WBC 8.5 hemoglobin 15.1 and platelets 212 Sodium 133 potassium 3.6 chloride 99 bicarb is 25 BUN 11 creatinine 0.6 and AST 118 ALT 67 alk phos 95 Amylase 146 lipase 1697 Urinalysis is negative for infection CT of the abdomen pelvis showed mild fat stranding around the head and body of the pancreas consistent with acute pancreatitis. No dilated ducts. EKG showed sinus rhythm with frequent ectopic premature complexes. Patient states that she did drink alcohol 2 days ago. 05/31/2022 Patient is currently lying in the bed. Awake alert but still complains of abdominal pain mainly in the epigastric region. Currently nothing by mouth. Continued on IV hydration and still requiring IV Dilaudid every 3 hours. No complaints of fever or chills. No chest pain or shortness of patient is also anxious. Laboratory data showed WBC 6.3 hemoglobin 14.3 and platelets 199 Sodium 133 potassium 3. 107 bicarb is 23.9 BUN 30.8 and creatinine 0.5 AST 103 ALT 111 alk phos 166 and lipase level came down to 119. 06/01/2022 Patient is still complaining of abdominal pain mainly in the epigastric region also complains of fullness in the abdomen and bloating sensation. Able to tolerate liquids with minimal overlying intake. No compressive fever or chills. Nausea improving. Still complaints of abdominal pain. Liver enzymes are trending down. Gastrology services be consulted due to the continued symptoms. 06/02/2022 Patient is lying in the bed. Abdominal pain is slightly better. Patient was started on clear liquids and advance as tolerated. Liver enzymes are trending down. Patient was seen by gastrology and ultrasound of THE LIVER WAS ORDERED. PATIENT HAS BEEN afebrile. No complaints of chest pain or shortness breath. Nausea is controlled with medications. Denied any dysuria or hematuria. No cough or sputum production. Patient is still requiring IV Dilaudid 06/03/2022 Patient is more awake and oriented. Abdominal pain is better today. Patient did have a bowel movement. No complaints of chest pain or shortness breath. No fever no chills. Nausea is improving. Patient is still requiring IV Dilaudid and will be changed to by mouth. Patient is on oxycodone at home. Patient is tolerating liquid diet and advance to low-fat diet. No cough or sputum production. No other acute overnight issues. Laboratory data showed liver enzymes are normalized. Sodium 140 potassium 3.7 chloride 104 bicarb is 25.3 BUN 3.5 and creatinine 0.6 Anticipate discharge next 24-48 hours. Ultrasound of the liver showed suboptimal study. Mild diffuse fatty infiltrate of hepatocellular disease throughout present. 06/04/2022 Patient is lying in bed. Awake alert and oriented x3. Abdominal pain is much improved. No complaints of bloating. Patient did have a bowel movement yesterday. Able to tolerate low-fat diet. No complaints of cough or sputum production. No nausea or vomiting episodes. No fever no chills. Patient did improve clinically. And is being discharged home today. Laboratory data reviewed. Patient was advised to follow-up with GI as an outpatient. PHYSICAL EXAMINATION: Patient is lying in the bed comfortably, no acute distress, awake alert and oriented.. HEENT: Normocephalic. Neck is supple. Pupils reactive. Nostrils clear. Oral cavity is moist. Neck reveals no JVD, carotid bruits, or thyromegaly. CHEST EXAMINATION: Trachea is central. Symmetrical expansion. Lung french clear to auscultation and percussion. CARDIAC: Normal S1, S2 with no gallops. No murmurs ABDOMEN: Soft. Bowel sounds present. Epigastric tenderness. No guarding no rigidity. No organomegaly. No abdominal bruits. Extremities: reveal no edema. No clubbing or cyanosis Neurologically awake, alert, oriented x3 with well-coordinated movements. No focal deficits noted Skin: No rash or skin lesions. Psychiatric: Coperative. Nonsuicidal, Musculoskeletal: No joint swelling or deformity. Normal range of motion. Discharge vitals reviewed. Patient Condition at Discharge: Fair Plan - Discharge Summary Discharge Rx Participant: Yes New Discharge Prescriptions: Continue clonazePAM [KlonoPIN] 0.5 mg PO BID PRN PRN Reason: Anxiety Losartan Potassium 100 mg PO DAILY oxyCODONE HCL [oxyCODONE HCL (IR)] 15 mg PO QID PRN PRN Reason: Pain Cyclobenzaprine [Flexeril] 10 mg PO DAILY PRN PRN Reason: Muscle Spasm Albuterol Inhaler [Ventolin Hfa Inhaler] 2 puff INHALATION RT-QID PRN #1 inhaler PRN Reason: Shortness Of Breath Or Wheezing Montelukast [Singulair] 10 mg PO DAILY Discontinued Ibuprofen [Advil] 200 mg PO BID Discharge Medication List Cyclobenzaprine [Flexeril] 10 mg PO DAILY PRN 11/04/20 [History] Losartan Potassium 100 mg PO DAILY 11/04/20 [History] clonazePAM [KlonoPIN] 0.5 mg PO BID PRN 11/04/20 [History] oxyCODONE HCL [oxyCODONE HCL (IR)] 15 mg PO QID PRN 11/04/20 [History] Albuterol Inhaler [Ventolin Hfa Inhaler] 2 puff INHALATION RT-QID PRN #1 inhaler 11/08/20 [Rx] Montelukast [Singulair] 10 mg PO DAILY 05/29/22 [History] Follow up Appointment(s)/Referral(s): Anselmo Spann DO [Primary Care Provider] - 1-2 days Slime Ndiaye MD [STAFF PHYSICIAN] - 1 Week Patient Instructions/Handouts: Pancreatitis (DC) Discharge Disposition: HOME SELF-CARE
== END 2022-06-04 15:15 | disposition home or self-care (01) | DRG 439 ==
LOC: EC 15:38 → 4SSUR 17:20
PROVIDERS: ADMIT Hospitalist; ATTEND Hospitalist
DX: K85.20 Alcohol induced acute pancreatitis without necrosis or infection (principal); E87.1 Hypo-osmolality and hyponatremia; G89.29 Other chronic pain; I10 Essential (primary) hypertension; E86.1 Hypovolemia; F17.210 Nicotine dependence, cigarettes, uncomplicated; K58.9 Irritable bowel syndrome, unspecified; M54.9 Dorsalgia, unspecified; M79.7 Fibromyalgia; Z79.51 Long term (current) use of inhaled steroids; Z79.82 Long term (current) use of aspirin; Z79.899 Other long term (current) drug therapy; Z90.49 Acquired absence of other specified parts of digestive tract; Z87.01 Personal history of pneumonia (recurrent); Z98.1 Arthrodesis status; Z28.311 Partially vaccinated for COVID-19; Z88.5 Allergy status to narcotic agent; Z88.0 Allergy status to penicillin; Z88.8 Allergy status to other drugs, medicaments and biological substances; Z91.041 Radiographic dye allergy status
CPT/HCPCS: 36415; 74176; 76705; 80053; 80074; 81003; 82150; 82787; 83605; 83690; 84478; 84484; 85025; 85610; 85730; 86038; 93005